=== PATIENT | female | born 1970 | race Caucasian/White ===

== ENCOUNTER → 2020-03-06 15:59 | Outpatient (CLI) | payer OTHER, BC, SELFPAY ==
--- NOTE | ~2020-03-06 | MM_ITS ---
EXAMINATION: MM screening [facility] BI w ganesh HISTORY: Screening TECHNIQUE: Craniocaudal and mediolateral oblique 3-D tomosynthesis images were obtained and synthetic 2-D images were generated. CAD analysis was submitted and interpreted. COMPARISON: 03/02/2019 BREAST PARENCHYMAL COMPOSITION: There are scattered areas of fibroglandular density. FINDINGS: There is no evidence of suspicious mass, calcification, or architectural distortion to sugg est malignancy in either breast. There has been no suspicious interval change. IMPRESSION: 1. No mammographic evidence of malignancy. 2. Recommend routine screening mammography in one year. BI-RADS Category 1: Negative Reviewed, dictated and finalized at location A. LINE REPAIRER
== END ==
PROVIDERS: Visit Provider Nurse Practitioner
DX: Z12.31 Encounter for screening mammogram for malignant neoplasm of breast (principal)
CPT/HCPCS: 77063; 77067

== ENCOUNTER → 2021-03-09 07:49 | Outpatient (CLI) | payer OTHER, SELFPAY ==
--- NOTE | ~2021-03-09 | MM_ITS ---
EXAMINATION: MM screening [facility] BI w ganesh HISTORY: Screening mammogram TECHNIQUE: Craniocaudal and mediolateral oblique 3-D tomosynthesis images were obtained and synthetic 2-D images were generated. CAD analysis was submitted and interpreted. COMPARISON: 03/06/2020, 03/02/2019 BREAST PARENCHYMAL COMPOSITION: There are scattered areas of fibroglandular density. FINDINGS: There is no evidence of suspicious mass, calcification, or architectural distortion to sugg est malignancy in either breast. There has been no suspicious interval change. IMPRESSION: 1. No mammographic evidence of malignancy. 2. Recommend routine screening mammography in one year. BI-RADS Category 1: Negative Reviewed, dictated and finalized at location A. FUNCTIONAL ANALYST
--- NOTE | ~2021-03-09 | DEXA_ITS ---
Bone Density Report Name: AZEB PAEZ Age: 50 Sex: Female Ethnicity: White Date of : 1970 Indication: postmenopausal; screening for osteoporosis; Referring Provider: Marti, Regi Study: Bone densitometry was performed. Exam Date: March 09, 2021 Accession number: [id number] Bone Density: Region BMD T-score Z-score Classification AP Spine (L1-L4) 1.025 -0.2 0.6 Normal Femoral Neck (Left) 0.864 0.1 1.0 Normal Total Hip (Left) 0.913 -0.2 0.3 Normal Femoral Neck (Right) 0.767 -0.7 0.1 Normal Total Hip (Right) 0.885 -0.5 0.1 Normal Total Hip Mean 0.899 -0.4 0.2 Normal World Health Organization criteria for BMD impression classify patients as: Normal (T-score at or above -1.0), Osteopenia (T-score between -1.0 and -2.5), or Osteoporosis (T-score at or below -2.5). 10-year Fracture Risk: FRAX not reported because: All T-scores for Spine Total, Hip Total, Femoral Neck at or above -1.0 Clinical Information Provided by Patient: Has used the following medications: Vitamin D Patient maximum height was 68 Menopause Age: 47 No regular weight bearing exercise Drinks caffeinated beverages Onset of menses at age 10 Number of children 3 Impression: The patient has normal bone mass. Discussion: BONE DENSITY IS ABOVE THE MINIMUM DESIRABLE LEVEL AT ALL SKELETAL SITES TESTED. This patient?s bone mineral density is above the minimum desirable level (T-score -1.0 or better) at all sites measured. The patient should follow a healthful lifestyle (good nutrition with adequate calcium and vitamin D, and appropriate weight-bearing exercise). Follow-Up: Consider repeating this study in 5 years or sooner if there is some new clinical indication. Reported by: [facility] on 03/09/2021 8:21:00 AM. Reviewed, dictated and finalized at location AEmilie [facility]ITAL[facility]
== END ==
PROVIDERS: Visit Provider Nurse Practitioner
DX: Z12.31 Encounter for screening mammogram for malignant neoplasm of breast (principal); Z78.0 Asymptomatic menopausal state
CPT/HCPCS: 77063; 77067; 77080

== ENCOUNTER → 2022-03-16 09:33 | Outpatient (CLI) | payer OTHER, SELFPAY ==
--- NOTE | ~2022-03-16 | MM_ITS ---
EXAMINATION: MM screening [facility] BI w ganesh HISTORY: Screening mammogram TECHNIQUE: Craniocaudal and mediolateral oblique 3-D tomosynthesis images were obtained and synthetic 2-D images were generated. CAD analysis was submitted and interpreted. COMPARISON: 03/09/2021, 02/27/2020, 03/02/2019 bilateral screening mammogram examinations BREAST PARENCHYMAL COMPOSITION: There are scattered areas of fibroglandular density. FINDINGS: Stable benign-appearing intramammary lymph node in the posterior outer mid left breast sinc e 03/02/2019. There is no evidence of suspicious mass, calcification, or architectural distortion to suggest malignancy in either breast. There has been no suspicious interval change. IMPRESSION: 1. No mammographic evidence of malignancy. 2. Recommend routine screening mammography in one year. BI-RADS Category 2: Benign finding(s). Reviewed, dictated and finalized at location A. ATOR TENDER
== END ==
PROVIDERS: PCP Nurse Practitioner; Visit Provider Nurse Practitioner
DX: Z12.31 Encounter for screening mammogram for malignant neoplasm of breast (principal)
CPT/HCPCS: 77063; 77067

== ENCOUNTER 2023-07-23 12:49 | Outpatient (CLI) | payer OTHER, SELFPAY ==
--- NOTE | 2023-07-23 13:30 | NEURO_ITS ---
Impression: # Complains of right wrist pain # Normal Nerve Conduction Study; No Carpal Tunnel Syndrome or ulnar neuropathy. # Normal needle/EMG exam. Nerve Conduction Studies Anti Sensory Summary Table Stim Site NR Peak (ms) P-T Amp (?V) Site1 Site2 Delta-P (ms) Dist (cm) Antione (m/s) Right Median Anti Sensory (2-3nd Digit) Wrist 2.9 74.0 Wrist 2-3nd Digit 2.9 14.0 48 Wrist 3.0 52.7 Wrist 2-3nd Digit 2.9 14.0 48 Right Radial Anti Sensory (Base 1st Digit) Wrist 2.3 22.0 Wrist Base 1st Digit 2.3 0.0 Right Ulnar Anti Sensory (5th Digit) Wrist 2.4 45.4 Wrist 5th Digit 2.4 14.0 58 Motor Summary Table Stim Site NR Onset (ms) O-P Amp (mV) Site1 Site2 Delta-0 (ms) Dist (cm) Antione (m/s) Right Median Motor (Abd Poll Brev) Wrist 3.1 9.0 Elbow Wrist 5.1 29.0 57 Elbow 8.2 6.0 Right Ulnar Motor (Abd Dig Minimi) Wrist 2.5 7.2 A Elbow Wrist 5.0 30.0 60 A Elbow 7.5 5.7 F Wave Studies NR F-Lat (ms) L-R F-Lat (ms) Right Median (Mrkrs) (Abd Poll Brev) 27.86 Right Ulnar (Mrkrs) (Abd Dig Min) 26.79 EMG Side Muscle Nerve Root Ins Act Fibs Amp Dur Recrt Comment Right 1stDorInt Ulnar C8-T1 Nml Nml Nml Nml Nml Right Ext Indicis Radial (Post Int) C7-8 Nml Nml Nml Nml Nml Right Ext Digitorum Radial (Post Int) C7-8 Nml Nml Nml Nml Nml Right BrachioRad Radial C5-6 Nml Nml Nml Nml Nml Right PronatorTeres Median C6-7 Nml Nml Nml Nml Nml Right Abd Poll Brev Median C8-T1 Nml Nml Nml Nml Nml Right ABD Dig Min Ulnar C8-T1 Nml Nml Nml Nml Nml Right Biceps Musculocut C5-6 Nml Nml Nml Nml Nml Right Triceps Radial C6-7-8 Nml Nml Nml Nml Nml Right Deltoid Axillary C5-6 Nml Nml Nml Nml Nml MTDD
== END 2023-07-23 12:50 | disposition home or self-care (01) ==
LOC: ANHNEURO 12:51
PROVIDERS: PCP Nurse Practitioner Family; Visit Provider Nurse Practitioner Family
DX: M25.531 Pain in right wrist (principal); R20.0 Anesthesia of skin; R20.2 Paresthesia of skin
CPT/HCPCS: 95886; 95909

== ENCOUNTER 2023-10-16 12:34 | Outpatient (CLI) | payer OTHER, SELFPAY ==
--- NOTE | ~2023-10-16 | MR_ITS ---
MRI of the right shoulder Technique: Axial proton-density fat-sat images, coronal proton density fat-sat and T2 fat-sat images, and sagittal T1-weighted and T2 fat-sat images were acquired. Clinical History: Pain Findings: There is [id number] AC joint degenerative change. Tiny subchondral spur present. Arin coclavicular, coracoacromial, and coracohumeral ligaments are intact. Supraspinatus and infraspinatus tendons are intact, without partial or full-thickness tear. There is mild tendinosis of these tendons. Subscapularis tendon is intact, mild tendinosis. Tendon of the long head of the biceps is intact. No labral tear evident. Inferior glenohumeral ligament is intact. There is no degenerative change or effusion of the glenohum eral joint. No subacromial/subdeltoid bursitis. No muscle atrophy or edema. There is a 1.8 x 1.7 cm c ircumscribed cystic lesion at the surgical neck region of the humerus, possibly a unicameral bone cys t. Impression: Mild rotator cuff tendinosis. Mild to moderate AC joint degenerative change. 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 Reviewed, dictated and finalized at [facility]. Impression: Mild rotator cuff tendinosis. Mild to moderate AC joint degenerative change. 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
== END 2023-10-16 12:35 | disposition home or self-care (01) ==
LOC: ANHIMG 12:42
PROVIDERS: PCP Nurse Practitioner Family; Visit Provider Nurse Practitioner Family
DX: M19.011 Primary osteoarthritis, right shoulder (principal)
CPT/HCPCS: 73221

== ENCOUNTER 2023-11-05 15:02 | Outpatient (CLI) | payer OTHER, SELFPAY ==
--- NOTE | ~2023-11-05 | MM_ITS ---
EXAMINATION: MM screening [facility] BI w ganesh HISTORY: Screening TECHNIQUE: Craniocaudal and mediolateral oblique 3-D tomosynthesis images were obtained and synthetic 2-D images were generated. CAD analysis was submitted and interpreted. COMPARISON: Comparison to multiple prior studies sequentially, with oldest reviewed study dated 02/08. BREAST PARENCHYMAL COMPOSITION: There are scattered areas of fibroglandular density. FINDINGS: There is no evidence of suspicious mass, calcification, or architectural distortion to sugg est malignancy in either breast. There has been no suspicious interval change. IMPRESSION: 1. No mammographic evidence of malignancy. 2. Recommend routine screening mammography in one year. BI-RADS Category 1: Negative Reviewed, dictated and finalized at location B.
== END 2023-11-05 15:03 ==
LOC: MICIMG 15:03
PROVIDERS: PCP Nurse Practitioner; Visit Provider Nurse Practitioner
DX: Z12.31 Encounter for screening mammogram for malignant neoplasm of breast (principal)
CPT/HCPCS: 77063; 77067

== ENCOUNTER 2024-04-29 15:00 | Outpatient (RCR) | payer OTHER, SELFPAY ==
--- NOTE | 2024-03-22 13:17 | PTOPEVAL1 ---
Assessment and note entered by Ave Dickson, PT Evaluation Information Assessment Status Evaluation Diagnosis M79.672 ICD-10 Condition Codes (PT) Pain in left ankle and joints of left foot M25.572 ,Difficulty Walking R26.2,Abnormalities of gait and mobility R26.9,Weakness R53.1 Onset August 12, 2023 Subjective Information Pt reports that a wooden table fell on her L foot; X-rays negative for fracture, bruising has faded at this time but pain and swelling persist. Has received cortisone shot, but no relief, prescribed Gabapentine and is taking it for 2 weeks now. Pt continue to go to work and perform functional tasks despite the pain and swelling. Reports increased difficulty with standing and walking distances. Assessment PT Clinical Summary Pt presents to therapy with c/o increased L foot pain secondary to a traumatic injury at work which resulted to significant swelling and bruising impacting her ability to perform standing and ambulation without AD at this time. She will benefit from skilled PT for education, to improve ROM, strength, balance and gait, improve functional mobility in order to safely return to [facility]. Plan of Care Interventions Check Out for Orthotic/Prosthetic,Electrical Stimulation,Gait Training,Hot Pack/Cold Pack, Intermittent Compression Pump,Manual Therapy,Neuro Re-education,Patient/Caregiver Education, Therapeutic Activities,Therapeutic Exercise, Ultrasound,Other Other Interventions Taping PT Services Indicated Yes Treatment Frequency and 2x/wk x 18 visits Duration These treatments will address the objective and functional deficits as defined above. The patient will be advanced safely and appropriately in order for the patient to progress towards his/her prior level of function. Additional exercises will be introduced and as well as a comprehensive home exercise program upon discharge, if needed, ?to ensure carryover of functional gains achieved in the clinic. This treatment plan has been reviewed and agreement upon by the patient.
--- NOTE | 2024-03-23 16:00 | OTOPEVAL1 ---
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 On Apr 29, 2023 patient was throwing a trash bag into a dumpster when she felt a pop in her right shoulder . She has been experiencing sharp stabbing pain in the shoulder and the hand. She reports paresthesia in the hand as well in the axillary region. She is right handed. -She has had formal PT on her shoulder around July 2023. She reports no changes with PT. 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 She continues to have severe pain in the shoulder with work tasks. -EMG was normal - no carpal tunnel syndrome and no ulnar neuropathy. -She has received 2 injections to the carpal tunnel (Jan and Feb 2024). -Right shoulder MRI Oct 2023: Mild rotator cuff tendinosis. Mild to moderate AC joint degenerative change. 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 -She is seeing 2 orthopedic surgeons this month: Dr. Nichols on 03/25/24. Dr. Valdez 04/09/24 per workman's comp. Reported Pain Level Pain Score 4,7: Self Report Additional Pain Score Comments Patient reports she feels the best when she first wakes up in the morning. (R) shoulder gets as low as 2/10 and (R) hand gets as low as 3/10. Assessment OT Clinical Summary Patient referred to OT with dx of right UE carpal tunnel and neuropathy. 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 She unfortunately continues to have severe pain and difficulty using her right UE despite the injury occurring 11 months ago. During the assessment today the patient is guarded and holds her arm adducted at her side with the elbow flexed . She is only able to move the shoulder 90 degrees forward and 60 degrees into abduction before needing to stop, describing a severe pulling pain in the medial upper arm/axillary region. She is able to move the elbow, forearm, and wrist through functional limits, but again is guarded. The hand displays difficulties making a fist, measuring 2 cm gap between the fingers and the palm. Did not assess MMT this date due to time constraints. Skilled OT indicated for use of modalities, therapeutic exercise, manual therapy, and HEP instruction and progression to facilitate optimal functional use of her right UE. Plan of Care Interventions Therapeutic Exercise,Manual Therapy,Neuro Re- education,Therapeutic Activities,Hot Pack/Cold Pack,Paraffin OT Services Indicated Yes Treatment Frequency and 2x/week for 8 visits Duration These treatments will address the objective and functional deficits as defined above. The patient will be advanced safely and appropriately in order for the patient to progress towards his/her prior level of function. Additional exercises will be introduced and as well as a comprehensive home exercise program upon discharge, if needed, ?to ensure carryover of functional gains achieved in the clinic. This treatment plan has been reviewed and agreement upon by the patient.
--- NOTE | 2024-03-23 16:00 | OPREHPOC ---
Outpatient Therapy Plan of Care This is a Multidisciplinary Plan of Care that may contain components documented by all disciplines (PT, OT, and ST.) OT Problem 1 OT Problem #1 Knowledge Deficit OT Goal 1 Goal / Goal Update Patient to be independent with instructed materials. Target Visit 8 OT Problem 2 OT Problem #2 Pain OT Goal 1 Goal / Goal Update Patient to report reduced pain in the right shoulder, reporting 4/10 or less at worst . Target Visit 8 OT Goal 2 Goal / Goal Update Patient to report reduced pain in the right hand, reporting 5/10 or less at worst . Target Visit 8 OT Problem 3 OT Problem #3 Edema OT Goal 1 Goal / Goal Update Patient to improve gross right shoulder motion for ADLs as demonstrated by being able to flex and abduct the arm to 120 degrees. Target Visit 8 OT Problem 4 OT Problem #4 Impaired Strength OT Goal 1 Goal / Goal Update Patient to be able to progress to strengthening in the right UE as demonstrated by being able to complete elbow, forearm, and wrist strengthening with 2 lb. free weight. Target Visit 8 OT Goal 2 Goal / Goal Update Patient to be able to progress to strengthening in the right UE as demonstrated by being able to complete right agricultural real estate agent strengthening with yellow putty x10 minutes. Target Visit 8
--- NOTE | 2024-04-29 15:44 | OTOPDC ---
Assessment and note entered by Roman Murphy, OTR/Bubba, CHT OT Discharge Information 04/29/24 Assessment Status Discharge Diagnosis (R) UE carpal tunnel syndrome, (R) UE neuropathy ICD-10 Condition Codes (OT) Pain in right hand M79.641,Paresthesia of skin R20 .2 Subjective Information - Arianna has participated in 8 OT sessions focused on improving right UE use. She continues to be very limited with shoulder ROM >90 degrees. She continues to have radiating pain into the elbow and hand, constant paresthesia. She reports she continues to have daily right UE pain rated at 7/ 10, up to 9/10 the other day when she had to shovel snow. - She reports no change with therapy. 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 On Apr 29, 2023 patient was throwing a trash bag into a dumpster when she felt a pop in her right shoulder . She has been experiencing sharp stabbing pain in the shoulder and the hand. She reports paresthesia in the hand as well in the axillary region. She is right handed. 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 She continues to have severe pain in the shoulder with work tasks. -EMG was normal - no carpal tunnel syndrome and no ulnar neuropathy. -She has received 2 injections to the carpal tunnel (Jan and Feb 2024). -Right shoulder MRI Oct 2023: Mild rotator cuff tendinosis. Mild to moderate AC joint degenerative change. 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 Reported Pain Level Pain Score 6,7: Self Report Assessment OT Clinical Summary Patient referred to OT with dx of right UE carpal tunnel and neuropathy. She presents with right shoulder pain that radiates into the elbow and hand. She unfortunately continues to have severe pain and difficulty using her right UE despite the injury occurring 12 months ago. Reassessment completed today. ROM measurements remained relatively unchanged - shoulder flexion 75-90 degrees, abduction (least tolerance with this motion) 60 degrees, elbow is WFL, wrist is WFL, and fingers are able to make a fist. 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 Unable to progress strengthening in the shoulder or elbow. HEP includes active assisted shoulder motion and active elbow motion. Unfortunately the patient has not progressed with therapy. She continues to experience high levels of pain with UE motion and use. She is independent with instructed materials to maintain her ROM and flexibility. D/C at this time. Plan of Care OT Services Indicated No
== END 2024-04-30 08:12 | disposition home or self-care (01) ==
LOC: ANHHIOT 15:00
PROVIDERS: PCP Nurse Practitioner Family; Visit Provider Plastic Surgery
DX: G56.01 Carpal tunnel syndrome, right upper limb (principal)
CPT/HCPCS: 97016; 97018; 97110; 97140; 97161; 97167; 97530

== ENCOUNTER 2024-05-10 14:45 | Outpatient (RCR) | payer OTHER, SELFPAY ==
--- NOTE | 2024-03-25 17:20 | PTOPEVAL1 ---
Assessment and note entered by Ave Dickson, PT Evaluation Information Assessment Status Evaluation Diagnosis M79.672 ICD-10 Condition Codes (PT) Pain in left ankle and joints of left foot M25.572 ,Difficulty Walking R26.2,Abnormalities of gait and mobility R26.9,Weakness R53.1 Onset 08/12/2023 Subjective Information Pt reports that a heavy wooden table broke and fell on her L foot as she was lifting/moving it at work; X-rays were negative for fracture, bruising has faded at this time but pain and swelling persist. Received a cortisone shot, but no relief; she was prescribed Gabapentine and is still taking it for 2 weeks now. Pt continue to go to work and perform functional tasks despite pain and swelling. Reports increased difficulty with standing and walking any distances, elevation of BLEs at end of day offered minimal relief. Pt wants to return to normal activities without discomfort. Assessment PT Clinical Summary Pt presents to therapy with c/o increased L foot pain secondary to a traumatic injury at work which resulted to significant swelling and bruising that impact her ability to perform standing and ambulation without AD at this time . She will benefit from skilled PT for education, to improve ROM, strength, balance, gait and functional mobility in order to return to [facility]. Plan of Care Interventions Check Out for Orthotic/Prosthetic,Electrical Stimulation,Gait Training,Hot Pack/Cold Pack, Intermittent Compression Pump,Manual Therapy,Neuro Re-education,Patient/Caregiver Education, Therapeutic Activities,Therapeutic Exercise, Ultrasound,Other Other Interventions Taping PT Services Indicated Yes Treatment Frequency and 2x/wk x 20 visits Duration These treatments will address the objective and functional deficits as defined above. The patient will be advanced safely and appropriately in order for the patient to progress towards his/her prior level of function. Additional exercises will be introduced and as well as a comprehensive home exercise program upon discharge, if needed, ?to ensure carryover of functional gains achieved in the clinic. This treatment plan has been reviewed and agreement upon by the patient.
--- NOTE | 2024-05-10 16:52 | PTOPDC ---
Assessment and note entered by Ave Dickson, PT Discharge Information Assessment Status Discharge Diagnosis M79.672 ICD-10 Condition Codes (PT) Pain in left ankle and joints of left foot M25.572 ,Difficulty Walking R26.2,Abnormalities of gait and mobility R26.9,Weakness R53.1 Onset 08/12/2023 Subjective Information Pt reports pain to top of the foot is persisting and is looking forward to getting the nerve conduction test done. States she is feeling a little better but not quite 100% at this time. States she also has a lot going on the past week that may have aggravated everything. She is currently having a migraine. Reported Pain Level Pain Score 3: Self Report Additional Pain Score Comments 2nd - 4th MT when actively abducted increases pain to 4/10 Assessment PT Clinical Summary Pt received a total of 9 treatment sessions and demos good progress with therapy. She showed gains in flexibility, mobility and strength, has increased her LEFs score to 54% indicating a mild to moderate disability compared to moderate/severe disability at [facility]; also showed significant improvement in gait pattern and standing tolerance . However, she reports that pain continue to persist and may have reduced some since evks but is not completely resolved. She is looking at participating in pain management program and has a schedule for Nerve Conduction Test. She is agreeable to DC today and reports compliance with HEPs. Skilled PT discontinued. Plan of Care PT Services Indicated No
== END 2024-05-11 10:54 | disposition home or self-care (01) ==
LOC: ANHHIPT 14:45
PROVIDERS: PCP Nurse Practitioner Family; Visit Provider Nurse Practitioner Family
DX: G90.521 Complex regional pain syndrome I of right lower limb (principal)
CPT/HCPCS: 97014; 97016; 97110; 97112; 97116; 97140; 97161; 97530; 97750; G0283

== ENCOUNTER 2024-06-09 12:46 | Outpatient (CLI) | payer OTHER, SELFPAY ==
--- NOTE | 2024-06-09 14:00 | NEURO_ITS ---
Impression: # History of blunt trauma to the dorsum of left foot. ? # Normal Nerve Conduction Study. ? # Normal needle/EMG exam. ? # Clinical correlation recommended. Nerve Conduction Studies Anti Sensory Summary Table ?Stim Site NR Peak (ms) P-T Amp (?V) Site1 Site2 Delta-P (ms) Dist (cm) Antione (m/s) Left Sup Fibular Anti Sensory (Ant Lat Mall) 14 cm ? 3.3 18.4 14 cm Ant Lat Mall 3.3 16.0 48 Right Sup Fibular Anti Sensory (Ant Lat Mall) 14 cm ? 3.3 3.4 14 cm Ant Lat Mall 3.3 16.0 48 Left Sural Anti Sensory (Lat Mall) Calf ? 3.8 4.6 Calf Lat Mall 3.8 18.0 47 Right Sural Anti Sensory (Lat Mall) Calf ? 3.4 12.3 Calf Lat Mall 3.4 16.0 47 Motor Summary Table ?Stim Site NR Onset (ms) O-P Amp (mV) Site1 Site2 Delta-0 (ms) Dist (cm) Antione (m/s) Left Peroneal Motor (Vastus Med) Ankle ? 3.5 1.0 Popit Ankle 8.3 41.0 49 Popit ? 11.8 0.5 Right Peroneal Motor (Vastus Med) Ankle ? 3.7 1.5 Popit Ankle 8.2 39.0 48 Popit ? 11.9 2.1 Left Tibial Motor (Abd Mcwilliams Brev) Ankle ? 4.2 7.2 Knee Ankle 8.7 41.0 47 Knee ? 12.9 3.3 Right Tibial Motor (Abd Mcwilliams Brev) Ankle ? 4.0 6.5 Knee Ankle 9.0 40.0 44 Knee ? 13.0 3.9 F Wave Studies ?NR F-Lat (ms) L-R F-Lat (ms) Left Peroneal (Mrkrs) (EDB) ? 53.25 0.87 Right Peroneal (Mrkrs) (EDB) ? 54.12 0.87 Left Tibial (Mrkrs) (Abd Hallucis) ? 53.80 1.44 Right Tibial (Mrkrs) (Abd Hallucis) ? 55.24 1.44 EMG ?Side Muscle Nerve Root Ins Act Fibs Amp Dur Recrt Comment Right AntTibialis Dp Br Fibular L4-5 Nml Nml Nml Nml Nml Right Gastroc Tibial S1-2 Nml Nml Nml Nml Nml Right Fibularis Long Sup Br Fibular L5-S1 Nml Nml Nml Nml Nml Right Flex Dig Long Tibial L5-S2 Nml Nml Nml Nml Nml Right Ext Dig Brev Dp Br Fibular L5, S1 Nml Nml Nml Nml Nml Right QuadratusFem QuadFemoris L4-5, S1 Nml Nml Nml Nml Nml Left AntTibialis Dp Br Fibular L4-5 Nml Nml Nml Nml Nml Left Gastroc Tibial S1-2 Nml Nml Nml Nml Nml Left Fibularis Long Sup Br Fibular L5-S1 Nml Nml Nml Nml Nml Left Flex Dig Long Tibial L5-S2 Nml Nml Nml Nml Nml Left Ext Dig Brev Dp Br Fibular L5, S1 Nml Nml Nml Nml Nml Left QuadratusFem QuadFemoris L4-5, S1 Nml Nml Nml Nml Nml MTDD
--- OUTSIDE RECORDS SUMMARY | 2024-06-09 14:00 | XMS_ITS | Clinical Summary ---
Author Organization [facility] Address [facility] [place] [address] Care Team Providers Care Thoracic Medicine Specialist Name Role Phone Aracelis Kent STOCK PLAN ADMINISTRATOR Primary Care Provider [phone] Allergies Active Allergy Reactions Criticality Noted Date Comments Ibuprofen Shortness of Breath High 12/11/2016 Nsaids Shortness of Breath High 12/11/2016 Medications diclofenac XR 100 MG 24 hr tablet Take 100 mg by mouth daily. 1 12/21/2018 Active SYNTHROID 112 MCG tablet Take 112 mcg by mouth daily. 1 12/17/2018 Active atorvastatin 40 MG tablet Take 20 mg by mouth daily. 1 12/17/2018 Active fluticasone propionate 50 MCG/ACT nasal spray 2 sprays by Nasal route 2 (two) times a day. 12/30/2018 Active Ergocalciferol (VITAMIN D2 OR) Take 1.25 mg by mouth weekly. Active Immunizations Name Administration Dates Next Due MODERNA COVID-19 (12+) MRNA, LNP-S, PF, 100 MCG/ 0.5 ML DOSE 05/12/2020,04/14/2020 Family History Medical History Relation Comments Heart Disease Brother Early Father Heart Disease Father Heart Disease Maternal Grandfather Cancer Maternal Grandmother Heart Disease Maternal Grandmother Heart Disease Paternal Grandfather Diabetes Paternal Grandmother Heart Disease Paternal Grandmother Relation Status Comments Brother Father (Age 50) Maternal Grandfather Maternal Grandmother Mother Alive Paternal Grandfather Paternal Grandmother Social History Tobacco Use Types Packs/Day Years Used Date Smoking Tobacco: Never Smokeless Tobacco: Never Alcohol Use Standard Drinks/Week Comments No 0 (1 standard drink = 0.6 oz pur e alcohol) AUDIT-C Answer Date Recorded Frequency of Alcohol Consumption Never 12/30/2018 Average Number of Drinks Not on file 019 Frequency of Binge Drinking Not on file 12/09 Comments No Sex and Gender Information Value Date Recorded Sex Assigned at Not on file Legal Sex Female 8:01 PM CDT Gender Identity Not on file Sexual Orientation Not on file Last Filed Vital Signs Vital Sign Reading Time Taken Comments Blood Pressure 119/60 08/15/2023 6:48 PM CDT Pulse 65 08/15/2023 6:48 PM CDT Temperature 37.2 C (99 F) 08/15/2023 6:48 PM CDT Respiratory Rate 18 08/15/2023 6:48 PM CDT Oxygen Saturation 97% 08/15/2023 6:48 PM CDT Inhaled Oxygen Concentration - - Weight 82.1 kg (181 lb) 08/15/2023 4:41 PM CDT Height 172.7 cm (5' 8 ) 08/15/2023 4:41 PM CDT Body Mass Index 27.52 08/15/2023 4:41 PM CDT Plan of Treatment Health Maintenance Due Date Last Done Comments Cervical Cancer Screening Pa p Smear (Age 30 to 64) Every 3 Years 1969 Colorectal Cancer Screening Colonoscopy (10 Years) 1969 Annual Physical 1972 Hepatitis C 08/31/1987 Hepatitis B Vaccines (1 of 3 - 19+ 3-dose series) 1988 Cervical Cancer Screening Pa p with HPV Testing (Age 30 to 64) Every 5 Years 08/31/1999 Cervical Cancer Screening wi th HPV 08/31/1999 Mammogram Screening 2009 Zoster Vaccines (2 of 2) 11/27/2019 10/02/2019 COVID-19 Vaccine (3 - 2023-2 5 season) 2023 05/12/2020, 04/14/2020 Influenza Adult (#1) 2023 12/19/2018 DTaP, Tdap and Td Vaccines ( 2 - Td or Tdap) 10/01/2029 10/02/2019 Meningococcal B Vaccine Aged Out No l onger eligible based on patient's age to complete this topic Meningococcal Vaccine Aged Out No sheri jatin eligible based on patient's age to complete this topic Pneumococcal Vaccine: Pediatrics (0 to 5 Years) and At-Risk Patients (6 to 64 Years) Aged Out No longer eligible b ased on patient's age to complete this topic RSV Immunizations Under 20 Months Aged Out No longer eligible b ased on patient's age to complete this topic Insurance [facility] Care Teams Thoracic Medicine Specialist Relationship Specialty Start Date End Date Aracelis Kent FNP [address] [place] [id number] PCP - General Nurse Practitioner Family 11/12/23
--- OUTSIDE RECORDS SUMMARY | 2024-06-09 14:00 | XMS_ITS | Clinical Summary ---
Author Organization [facility] Address [address] [place] [address] Care Team Providers Care Security Site Supervisor Name Role Phone Sanaz Pickard MD Unavailable Aracelis Kent NP Primary Care Provider Allergies Active Allergy Reactions Criticality Noted Date Comments Ibuprofen Shortness of breath High 12/11/2016 Nsaids (Non-Steroidal Anti-Inflammatory Drug) Shortness of breath High 12/11/2016 Medications levothyroxine (SYNTHROID) 112 mcg tablet Take 112 mcg by mouth software developer before breakfast Active nabumetone (RELAFEN) 750 mg tablet Take 750 mg by mouth 2 (two) times a day 1 Active atorvastatin (LIPITOR) 40 mg tablet Take 40 mg by mouth daily 1 Active fluticasone propionate (FLONASE) 50 mcg/actuation nasal spray 1 Active ergocalciferol (VITAMIN D) 50,000 unit capsule TAKE 1 CAPSULE BY MOUTH WEEKLY 1 Active gabapentin (NEURONTIN) 300 mg capsule Take one tablet QHS x 5 days then take two tablets QHS 60 capsule 3 1 Active Active Problems Problem Noted Date Diagnosed Date Bone cyst of right humerus 05/03/2024 Peroneal tendinitis of left lower leg 07/27/2020 Chronic right shoulder pain 12/11/2016 Multiple joint pain 10/09/2016 Assessment & Plan (12/11/2016 12:30 PM CDT): Patient disease activity is moderate, multiple tender joints and higher pain score. Patient is to continue gabapentin. Will have her undergo Pt. EMG-NCV normal, possible early evidence of a mild C7 radiculopathy. Unable to take NSAIDs as she is allergic (with SOB). Recommend f/u with ortho. Will see her in three months. May consider repeating u/s at that time if she continues to have hand pain. Assessment & Plan (10/30/2016 12:24 PM CDT): Patient with mild findings on u/s. Suspect most of her shoulder and neck pain is OA and cervical radiculopathy. Will have her get an EMG-NCV study to evaluate where the entrapment is taking place. Will also start her on gabapentin 300 mg q hs for nerve pain at night and to help her sleep. Will probably have to refer her to ortho. Patient seen with Dr. Pickard. Encounters Date Type Department Care Team Description 05/03/2024 12:30 PM FINANCIAL SERVICES SALES REPRESENTATIVE Office Visit [facility] Orthopaedic Surgery [address] [facility] 6th [place] [address] [place] [address] Tan Real MD Bone cyst of right humerus (Primary Dx); Chronic right shoulder pain 05/03/2024 11:52 AM FINANCIAL SERVICES SALES REPRESENTATIVE - 05/03/2024 11:59 PM FINANCIAL SERVICES SALES REPRESENTATIVE Hospital Encounter [facility] [address] [place] [address] Chronic right shoulder pain Discharge Disposition: Discharge to home or self care 04/29/2024 Orders Only [facility] Orthopaedic Surgery [address] [place] [facility] 6th [place] [address] [place] [address] Tan Real MD Chronic right shoulder pain (Primary Dx) from Last 3 Months Immunizations Immunization Administration Dates Next Due Flucelvax Influenza Quad 12/19/2018 Moderna SARS-CoV-2 Monovalent Vaccination (12+ Y RS) 05/12/2020,04/14/2020 Tdap 10/02/2019 ZOSTER Recombinant 10/02/2019 Surgical History Surgery Date Site/Laterality Comments SINUS SURGERY N/A ARM SURGERY N/A SECTION N/A Medical History Medical History Date Comments Allergic rhinitis Obesity Migraines Family History Medical History Relation Name Comments Cancer Brother Heart disease Brother Allergy (severe) Father Heart attack Father Heart disease Father Obesity Father Stroke Father Miscarriages / Stillbirths Mother Mama Alzheimer's disease Paternal Grandfather Pop Heart disease Paternal Grandfather Pop Relation Name Status Comments Brother Father Mother Mama Paternal Grandfather Pop Social History Tobacco Use Types Packs/Day Years Used Date Smoking Tobacco: Never Smokeless Tobacco: Never AUDIT-C Answer Date Recorded Q1: How often do you have a drink containing alc ohol? Monthly or less 08/01/2020 Q2: How many drinks containi ng alcohol do you have on a typical day when you are drinking? 1 or 2 08/01/2020 Q3: How often do you have si x or more drinks on one occasion? Never 08/01/2020 Comments Unknown Sex and Gender Information Value Date Recorded Sex Assigned at Not on file Legal Sex Female 10:01 PM FINANCIAL SERVICES SALES REPRESENTATIVE Gender Identity Not on file Sexual Orientation Not on file Occupation Industry Job Start Date Job End Date EMPLOYED Not on file Not on file Not on file Obstetrics History Last Filed Vital Signs Vital Sign Reading Time Taken Comments Blood Pressure 122/70 12/11/2016 11:30 AM CDT Pulse 78 12/11/2016 11:30 AM CDT Temperature - - Respiratory Rate - - Oxygen Saturation - - Inhaled Oxygen Concentration - - Weight 86.8 kg (191 lb 6.4 oz) 08/01/2020 12:06 PM CDT Height 172.7 cm (5' 8 ) 08/01/2020 12:06 PM CDT Body Mass Index 29.1 08/01/2020 12:06 PM CDT Plan of Treatment Health Maintenance Due Date Last Done Comments Breast Cancer Screening-Mammogram 1969 Cervical Cancer Screening 1969 Colon Cancer Screening-Colonoscopy 1969 Depression Screening 1969 Hepatitis C Screening 1969 Hepatitis B Screening 08/31/1987 Regular Well Visit/Exam 18-64 08/31/1987 Zoster Vaccine (2 of 2) 11/27/2019 10/02/2019 Covid-19 Vaccine (2023-2 5 season) 2023 05/12/2020, 04/14/2020 Influenza Vaccine (Season Ended) 2024 12/19/2018 DTaP/Tdap/Td Vaccine (2 - Td or Tdap) 10/01/2029 10/02/2019 Pneumococcal vaccine <65 Aged Out No longer eligible based on patient's age to complete this topic Procedures Procedure Name Priority Date/Time Associated Diagnosis Comments XR SHOULDER RIGHT 2 OR MORE VIEWS Schedule Routine, Read Routine (OP Routine) 05/03/2024 12:03 PM FINANCIAL SERVICES SALES REPRESENTATIVE Chronic right shoulder pain from Last 3 Months Results * XR Shoulder Right 2 or More Views (05/03/2024 12:03 PM FINANCIAL SERVICES SALES REPRESENTATIVE) Anatomical Region Laterality Modality Upper Extremities, Shoulder Right Comp uted Radiography 05/03/2024 12:4 6 PM FINANCIAL SERVICES SALES REPRESENTATIVE Impressions 05/03/2024 12:46 PM FINANCIAL SERVICES SALES REPRESENTATIVE Grossly unchanged cystic lesion in the right proximal humerus. Electronically signed by: Fabricio Newberry D.O. Narrative 05/03/2024 12:46 PM FINANCIAL SERVICES SALES REPRESENTATIVE EXAMINATION: XR SHOULDER RIGHT 2 OR MORE VIEWS HISTORY: Right Shoulder cyst COMPARISON: MRI 10/22/2016, radiographs 07/19/2020 FINDINGS: Normal glenohumeral joint space and alignment. Normal subacromial space. Mild acromioclavicular osteoarthritis. Grossly unchanged cystic lesion in the humeral head near the surgical neck. No significant endosteal scalloping or aggressive periosteal reaction. No displaced fracture. Procedure Note Fabricio Newberry, - 05/03/2024 EXAMINATION: XR SHOULDER RIGHT 2 OR MORE VIEWS HISTORY: Right Shoulder cyst COMPARISON: MRI 10/22/2016, radiographs 07/19/2020 FINDINGS: Normal glenohumeral joint space and alignment. Normal subacromial space. Mild acromioclavicular osteoarthritis. Grossly unchanged cystic lesion in the humeral head near the surgical neck. No significant endosteal scalloping or aggressive periosteal reaction. No displaced fracture. IMPRESSION: Grossly unchanged cystic lesion in the right proximal humerus. Electronically signed by: Fabricio Newberry D.O. Tan Real MD IMG XR PROCEDURES Final Re sult from Last 3 Months Insurance CHOICE PLUS CHOICE PLUS [facility] CHOICE PLUS BLUE ACC[place] [facility] CHOICE PLUS CHOICE PLUS WORKERS COMPENSATION GENERIC COMPENSATION Care Teams Security Site Supervisor Relationship Specialty Start Date End Date Aracelis Kent NP [address] [place] [address] PCP - General Nurse Practitioner 05/03/24 [place] [id number] [address] Rheumatology 12/12/16
--- OUTSIDE RECORDS SUMMARY | 2024-06-09 14:00 | XMS_ITS | Encounter Summary ---
Author Organization [facility] Address [facility] [place] [address] Care Team Providers Care Mobile Ui Designer Name Role Phone Macario Ibrahim MD Primary Care Provider Unava Robyn Strange DO Primary Care Provider [phone] Aracelis Kent Primary Care Provider [phone] Encounter Details Date Type Department Care Team (Late st Contact Info) Description 11/22/2016 Abstract [facility] CONVERSION [address] [place] [address] , Michaelle Zamudio MD Social History Tobacco Use Types Packs/Day Years Used Date Smoking Tobacco: Never Assessed Comments Unknown Sex and Gender Information Value Date Recorded Sex Assigned at Not on file Legal Sex Female 8:01 PM CDT Gender Identity Not on file Sexual Orientation Not on file documented as of this encounter Plan of Treatment Not on file documented as of this encounter Visit Diagnoses Not on filedocumented in this encounter Care Teams Mobile Ui Designer Relationship Specialty Start Date End Date Macario Ibrahim MD PCP - General INTERNAL MEDICINE 12/02/18 11/02/20 Robyn Rucker DO PCP - General FAMILY PRACTICE 11/03/20 11/11/23 Aracelis Kent FNP [address] [place] [address] PCP - General Nurse Practitioner Family 11/12/23 documented as of this encounter
--- OUTSIDE RECORDS SUMMARY | 2024-06-09 14:00 | XMS_ITS | Clinical Summary ---
Author Organization [facility] Address [address] [place] [address] Care Team Providers Care Business Administrator Name Role Phone Macario Ibrahim MD Primary Care Provider [phone] Source Comments [facility],non-owned Affiliates and Associated Physician Practices is amultiple site organization consisting of ambulatory clinics and hospital sitesin [place], [place], [place] and [place]. This disclosure is being madepursuant to the Care Everywhere program and may not contain all information available regarding this patient. Last updated 17.[facility] [employer] Social History Tobacco Use Types Packs/Day Years Used Date Smoking Tobacco: Never Assessed Sex and Gender Information Value Date Recorded Sex Assigned at Not on file Gender Identity Not on file Sexual Orientation Not on file Plan of Treatment Health Maintenance Due Date Last Done Comments COLOGUARD (AGES 45-75) - COL ON CA SCREENING 1969 COLON MONITORING 1969 COLONOSCOPY - COLON CA SCREENING 1969 CT COLONOGRAPHY - COLON CA SCREENING 1969 Colorectal Cancer Screening 1969 FIT - COLON CA SCREENING 1969 FLEX SIG - COLON CA SCREENING 1969 LIPID TESTING 1969 MAMMOGRAM 1969 PAP SMEAR 1969 HIV SCREENING 1984 HEPATITIS C SCREENING 08/26/1987 DTAP/TDAP/TD VACCINES (1 - Tdap) 1988 HEPATITIS B VACCINE (1 of 3 - 19+ 3-dose series) 1988 PNEUMOCOCCAL VACCINE 50+ (1 of 1 - PCV) 08/31/2019 ZOSTER VACCINE (1 of 2) 08/31/2019 COVID-19 VACCINE ( - 2023-2 5 season) 2023 INFLUENZA VACCINE (#1) 2023 DEPRESSION SCREENING 03/10/2024 HIB VACCINE Aged Out No longer eligi ble based on patient's age to complete this topic HPV VACCINE Aged Out No longer eligi ble based on patient's age to complete this topic MENINGOCOCCAL (Group B) VACC INE SHARED DECISION-MAKING Aged Out No longer eligibl e based on patient's age to complete this topic MENINGOCOCCAL GROUPS A/C/Y/W VACCINE Aged Out No longer eligible b ased on patient's age to complete this topic PNEUMOCOCCAL VACCINE Aged Out No long er eligible based on patient's age to complete this topic Care Teams Business Administrator Relationship Specialty Start Date End Date Macario Ibrahim MD [address] [address] PCP - General Internal Medicine 10/09/16
--- OUTSIDE RECORDS SUMMARY | 2024-06-09 14:00 | XMS_ITS | Referral Summary ---
Author Organization [facility] Address [address] [facility] [place] [address] Care Team Providers Care Insulation Worker Name Role Phone Sanaz Pickard MD Unavailable Aracelis Kent NP Primary Care Provider [phone] Encounters Date Type Department Care Team Description 05/03/2024 11:52 AM MICRO PALEONTOLOGIST - 05/03/2024 11:59 PM MICRO PALEONTOLOGIST Hospital Encounter [facility] ([facility] [address] [place] [address] Chronic right shoulder pain Discharge Disposition: Discharge to home or self care 05/03/2024 12:30 PM MICRO PALEONTOLOGIST Office Visit [facility] Orthopaedic Surgery [address] [place] [address] Advanced Medicine [address]th [place] [address] [place] [address] Tan Real MD Bone cyst of right humerus (Primary Dx); Chronic right shoulder pain 04/29/2024 Orders Only [facility] Orthopaedic Surgery [address] [place] [address] Advanced Medicine [address]th [place] [address] [place] [address] Tan Real MD Chronic right shoulder pain (Primary Dx) from Last 3 Months Allergies Active Allergy Reactions Criticality Noted Date Comments Ibuprofen Shortness of breath High 12/11/2016 Nsaids (Non-Steroidal Anti-Inflammatory Drug) Shortness of breath High 12/11/2016 Medications levothyroxine (SYNTHROID) 112 mcg tablet Take 112 mcg by mouth oncology coordinator before breakfast Active nabumetone (RELAFEN) 750 mg [...] to ortho. Patient seen with Dr. Pickard. Immunizations Immunization Administration Dates Next Due Flucelvax Influenza Quad 12/19/2018 Moderna SARS-CoV-2 Monovalent Vaccination (12+ Y RS) 05/12/2020,04/14/2020 Tdap 10/02/2019 ZOSTER Recombinant 10/02/2019 Social History Tobacco Use Types Packs/Day Years [...] on file Legal Sex Female 10:01 PM MICRO PALEONTOLOGIST Gender Identity Not on file Sexual Orientation Not on file Occupation Industry Job Start Date Job End Date EMPLOYED Not on file Not on file Not on file Last Filed Vital Signs [...] 08/01/2020 12:06 PM CDT Plan of Treatment Not on file Procedures Procedure Name Priority Date/Time Associated Diagnosis Comments XR SHOULDER RIGHT 2 OR MORE VIEWS Schedule Routine, Read Routine (OP Routine) 05/03/2024 12:03 PM MICRO PALEONTOLOGIST Chronic right shoulder pain from Last 3 Months Results * XR Shoulder Right 2 or More Views (05/03/2024 12:03 PM MICRO PALEONTOLOGIST) Anatomical Region Laterality Modality Upper Extremities, Shoulder Right Comp uted Radiography 05/03/2024 12:4 6 PM MICRO PALEONTOLOGIST Impressions 05/03/2024 12:46 PM MICRO PALEONTOLOGIST Grossly unchanged cystic lesion in the right proximal humerus. Electronically signed by: Fabricio Newberry D.O. Narrative 05/03/2024 12:46 PM MICRO PALEONTOLOGIST EXAMINATION: XR SHOULDER RIGHT 2 OR MORE [...] from Last 3 Months Insurance CHOICE PLUS [facility] HMO/PPO Address: [facility] [address] [facility] HMO/PPO Address: [address] [address] [place] [address] [facility] [facility] HMO/PPO Address: [address] [address] [place] [address] BLUE ACC[place] CHOICE PLUS [facility] HMO/PPO Address: [address] [address] [place] [address] [facility] HMO/PPO Address: [address] [address] [place] [address] WORKERS COMPENSATION GENERIC COMPENSATION Care Teams Insulation Worker Relationship Specialty Start Date End Date Aracelis Kent NP [address] [place] [address] PCP - General Nurse Practitioner 05/03/24 [place] [address] [facility] [address] [place] [address] Rheumatology 12/12/16
--- OUTSIDE RECORDS SUMMARY | 2024-06-09 14:00 | XMS_ITS | Encounter Summary ---
Author Organization [facility] Address [address] [place] [address] Care Team Providers Care Shipping Receiving Clerk Name Role Phone Patrice Collado MD, Macario Jennings Unavailable [phone] Patrice Collado MD, Oscar A. Unavailable + [phone] Sanaz Pickard MD Unavailable Patrice Collado MD, Oscar A. Primary Care Provider Miscellaneous, Not In File Primary Care Provider Unavailable Unknown, Notinfile Primary Care Provider Unavail able Aracelis Kent NP Primary Care Provider [phone] Encounter Details Date Type Department Care Team (Late st Contact Info) Description 08/09/[address] [facility] [address] [place] [address] Transcribed Order, Provider Social History Tobacco Use Types Packs/Day Years [...] on file Legal Sex Female 10:01 PM MANAGER CARGO Gender Identity Not on file Sexual Orientation Not on file Occupation Industry Job Start Date Job End Date EMPLOYED Not on file Not on file Not on file documented as of this encounter Plan of Treatment Not on file documented as of this encounter Visit Diagnoses Not on filedocumented in this encounter Care Teams Shipping Receiving Clerk Relationship Specialty Start Date End Date Macario Ibrahim Jr., MD [address] [place] [address] PCP - General 11/04/19 10/12/20 Miscellaneous, Not In File PCP - General 10/16/20 Unknown, Notinfile PCP - General 04/09/24 05/02/24 Aracelis Kent NP [address] [place] [address] PCP - General Nurse Practitioner 05/03/24 Macario Ibrahim Jr., MD [address] [place] [address] 09/18/16 10/12/20 Macario Ibrahim Jr., MD [address] [place] [address] Geriatric Medicine 10/09/16 10/12/20 [place] [address] [facility] [address] [place] [address] Rheumatology 12/12/16 documented as of this encounter
== END 2024-06-09 12:47 | disposition home or self-care (01) ==
LOC: ANHNEURO 12:50
PROVIDERS: Visit Provider Podiatrist
DX: G90.521 Complex regional pain syndrome I of right lower limb (principal); Z87.828 Personal history of other (healed) physical injury and trauma
CPT/HCPCS: 95886; 95910

== ENCOUNTER 2024-06-28 10:24 | Outpatient (CLI) | payer OTHER, SELFPAY ==
--- NOTE | ~2024-06-28 | XR_ITS ---
Right Hand Technique: PA, oblique, and lateral views were obtained. Clinical History: Carpal tunnel syndrome Findings: No acute fracture or dislocation is seen. Osseous alignment is anatomic. Joint spaces are p reserved. Soft tissues are unremarkable. Impression: Unremarkable right hand. Reviewed, dictated and finalized at location . Impression: Unremarkable right hand.
--- OUTSIDE RECORDS SUMMARY | 2024-06-28 12:43 | XMS_ITS | Referral Summary ---
Author Organization [facility] Address [address] [facility] [address] Care Team Providers Care Dental Director Name Role Phone Sanaz Pickard MD Unavailable Aracelis Kent NP Primary Care Provider [phone] Encounters Date Type Department Care Team Description 05/03/2024 11:52 AM SLUBBER TENDER - 05/03/2024 11:59 PM SLUBBER TENDER Hospital Encounter [facility] [address] [place] [address] Chronic right shoulder pain Discharge Disposition: Discharge to home or self care 05/03/2024 12:30 PM SLUBBER TENDER Office Visit [facility] Orth[facility] [address] [place] [address] Advanced Medicine 6th [place] [address] [place] [id number] Tan Real MD Bone cyst of right humerus (Primary Dx); Chronic right shoulder pain 04/29/2024 Orders Only [facility] [address] [place] [address] Advanced Medicine 6th [place] [address] [place] [address] Tan Real MD Chronic right shoulder pain (Primary Dx) from Last 3 Months Allergies Active Allergy Reactions Criticality Noted Date Comments Ibuprofen Shortness of breath High 12/11/2016 Nsaids (Non-Steroidal Anti-Inflammatory Drug) Shortness of breath High 12/11/2016 Medications levothyroxine (SYNTHROID) 112 mcg tablet Take 112 mcg by mouth installation technician before breakfast Active nabumetone (RELAFEN) 750 mg [...] on file Legal Sex Female 10:01 PM SLUBBER TENDER Gender Identity Not on file Sexual Orientation [...] Read Routine (OP Routine) 05/03/2024 12:03 PM SLUBBER TENDER Chronic right shoulder pain from Last 3 Months Results * XR Shoulder Right 2 or More Views (05/03/2024 12:03 PM SLUBBER TENDER) Anatomical Region Laterality Modality Upper Extremities, Shoulder Right Comp uted Radiography 05/03/2024 12:4 6 PM SLUBBER TENDER Impressions 05/03/2024 12:46 PM SLUBBER TENDER Grossly unchanged cystic lesion in the right proximal humerus. Electronically signed by: Fabricio Newberry D.O. Narrative 05/03/2024 12:46 PM SLUBBER TENDER EXAMINATION: XR SHOULDER RIGHT 2 OR MORE [...] 3 Months Insurance [facility] HMO/PPO Address: [facility] [address] [facility] [facility] HMO/PPO Address: [address] [address] [place] [address] [facility] HMO/PPO Address: [address] [address] [place] [address] [place]UE [place] CHOICE [facility] HMO/PPO Address: [address] [address] [place] [address] [facility] HMO/PPO Address: [address] [address] [place] [address] WORKERS COMPENSATION GENERIC COMPENSATION Care Teams Dental Director Relationship Specialty Start Date End Date Aracelis Kent NP [address] [place] [address] PCP - General Nurse Practitioner 05/03/24 [place] [address] [facility] [address] [place] [address] Rheumatology 12/12/16
--- OUTSIDE RECORDS SUMMARY | 2024-06-28 12:43 | XMS_ITS | Clinical Summary ---
Author Organization [facility] Address [address] [place] [address] Care Team Providers Care Figure Clerk Name Role Phone Macario Ibrahim MD Primary Care Provider [phone] Source Comments [facility],non-owned Affiliates and Associated Physician Practices is amultiple site organization consisting of ambulatory clinics and hospital sitesin [place], [place], [place] and [place]. This disclosure is being madepursuant to the Care Everywhere program and may not contain all information available regarding this patient. Last updated 17.[facility] [employer] Social History Tobacco Use Types Packs/Day Years Used Date Smoking Tobacco: Never Assessed Comments Unknown Sex and Gender Information Value Date Recorded Sex Assigned at Not on file Legal Sex Female 10:24 AM CDT Gender Identity Not on file Sexual [...] SCREENING 1969 LIPID TESTING 1969 MAMMOGRAM 1969 HIV SCREENING 1984 HEPATITIS C SCREENING 08/26/1987 DTAP/TDAP/TD VACCINES (1 - Tdap) 1988 HEPATITIS B VACCINE (1 of 3 - 19+ 3-dose series) 1988 PNEUMOCOCCAL VACCINE 50+ (1 of 1 - PCV) 08/31/2019 ZOSTER VACCINE (1 of 2) 08/31/2019 COVID-19 VACCINE (1 - 2023-2 5 season) 2023 DEPRESSION SCREENING 03/10/2024 INFLUENZA VACCINE (Season Ended) 2024 HIB VACCINE Aged Out No longer eligi [...] patient's age to complete this topic Insurance [facility] Address: [address] [address] [place] [address] Care Teams Figure Clerk Relationship Specialty Start Date End Date Macario Ibrahim MD [address] [address] PCP - General Internal Medicine 10/09/16
--- OUTSIDE RECORDS SUMMARY | 2024-06-28 12:43 | XMS_ITS | Clinical Summary ---
Author Organization [facility] Address [address] [place] [address] Care Team Providers Care Pot Puller Name Role Phone Sanaz Pickard MD Unavailable Aracelis Kent NP Primary Care Provider Allergies Active Allergy Reactions Criticality Noted Date Comments Ibuprofen Shortness of breath High 12/11/2016 Nsaids (Non-Steroidal Anti-Inflammatory Drug) Shortness of breath High 12/11/2016 Medications levothyroxine (SYNTHROID) 112 mcg tablet Take 112 mcg by mouth hand candle dipper before breakfast Active nabumetone (RELAFEN) 750 mg [...] Department Care Team Description 05/03/2024 12:30 PM FOUNDRY WORKER GENERAL Office Visit [facility] [address] [facility] 6th [place] [address] [place] [address] Tan Real MD Bone cyst of right humerus (Primary Dx); Chronic right shoulder pain 05/03/2024 11:52 AM FOUNDRY WORKER GENERAL - 05/03/2024 11:59 PM FOUNDRY WORKER GENERAL Hospital Encounter [facility] [address] [place] [address] Chronic right shoulder pain Discharge Disposition: Discharge to home or self care 04/29/2024 Orders Only [facility] [address] [facility] Advanced Medicine 6th [place] [address] [place] [address] Tan Real MD Chronic right shoulder pain [...] on file Legal Sex Female 10:01 PM FOUNDRY WORKER GENERAL Gender Identity Not on file Sexual Orientation [...] Read Routine (OP Routine) 05/03/2024 12:03 PM FOUNDRY WORKER GENERAL Chronic right shoulder pain from Last 3 Months Results * XR Shoulder Right 2 or More Views (05/03/2024 12:03 PM FOUNDRY WORKER GENERAL) Anatomical Region Laterality Modality Upper Extremities, Shoulder Right Comp uted Radiography 05/03/2024 12:4 6 PM FOUNDRY WORKER GENERAL Impressions 05/03/2024 12:46 PM FOUNDRY WORKER GENERAL Grossly unchanged cystic lesion in the right proximal humerus. Electronically signed by: Fabricio Newberry D.O. Narrative 05/03/2024 12:46 PM FOUNDRY WORKER GENERAL EXAMINATION: XR SHOULDER RIGHT 2 OR MORE [...] 3 Months Insurance CHOICE PLUS CHOICE PLUS [facility] CHOICE PLUS [place] [facility] CHOICE PLUS CHOICE PLUS WORKERS COMPENSATION GENERIC COMPENSATION Care Teams Pot Puller Relationship Specialty Start Date End Date Aracelis Kent NP [address] [place] [address] PCP - General Nurse Practitioner 05/03/24 [place] [address] [address] Rheumatology 12/12/16
--- OUTSIDE RECORDS SUMMARY | 2024-06-28 12:44 | XMS_ITS | Clinical Summary ---
Author Organization [facility] Address [facility] [place] [address] Care Team Providers Care Cloth Laminating Supervisor Name Role Phone Aracelis Kent TACK MAKER Primary Care Provider [phone] Allergies Active Allergy Reactions Criticality Noted Date [...] 1.25 mg by mouth weekly. Active Immunizations Immunization Administration Dates Next Due MODERNA COVID-19 (12+) [...] wi th HPV 08/31/1999 Mammogram Screening 2009 Pneumococcal Vaccine: 50+ Years (1 of 1 - PCV) 08/31/2019 Zoster Vaccines (2 of 2) 11/27/2019 10/02/2019 COVID-19 Vaccine (3 - 2023-2 5 season) 2023 05/12/2020, 04/14/2020 DTaP, Tdap and Td Vaccines ( 2 [...] patient's age to complete this topic Insurance [facility] Care Teams Cloth Laminating Supervisor Relationship Specialty Start Date End Date Aracelis Kent FNP [address] [place] [address] PCP - General Nurse Practitioner Family 11/12/23
--- OUTSIDE RECORDS SUMMARY | 2024-06-28 12:44 | XMS_ITS | Encounter Summary ---
Author Organization [facility] Address [address] [place] [address] Care Team Providers Care Torpedo Shooter Name Role Phone Patrice Collado MD, Macario Jennings Unavailable [phone] Patrice Collado MD, Oscar A. Unavailable [phone] Sanaz Pickard MD Unavailable Patrice Collado MD, Oscar A. Primary Care Provider Miscellaneous, Not In File Primary Care Provider Unavailable Unknown, Notinfile Primary Care Provider Unavail able Aracelis Kent NP Primary Care Provider [phone] Encounter Details Date Type Department Care Team (Late st Contact Info) Description 08/09/2020 Telephone [facility] [address] [place] [address] Transcribed Order, Provider Social History [...] on file Legal Sex Female 10:01 PM GREASE REMOVER Gender Identity Not on file Sexual Orientation Not on file Occupation Industry Job Start Date Job End Date EMPLOYED Not on file Not on file Not on file documented as of this encounter Plan of Treatment Not on file documented as of this encounter Visit Diagnoses Not on filedocumented in this encounter Care Teams Torpedo Shooter Relationship Specialty Start Date End Date Macario Ibrahim Jr., MD [address] [place] [address] PCP - General 11/04/19 10/12/20 Miscellaneous, Not In File PCP - General 10/16/20 Unknown, Notinfile PCP - General 04/09/24 05/02/24 Aracelis Kent NP [address] [place] [address] PCP - General Nurse Practitioner 05/03/24 Macario Ibrahim Jr., MD [address] [place] [address] 09/18/16 10/12/20 Macario Ibrahim Jr., MD [address] [place] [address] Geriatric Medicine 10/09/16 10/12/20 [place] [address] [facility] [address] [place] [address] Rheumatology 12/12/16 documented as of this encounter
--- OUTSIDE RECORDS SUMMARY | 2024-06-28 12:44 | XMS_ITS | Encounter Summary ---
Author Organization [facility] Address [facility] [place] [address] Care Team Providers Care Clinical Systems Analyst Name Role Phone Macario Ibrahim MD Primary Care Provider Unava Robyn Strange DO Primary Care Provider [phone] Aracelis Kent Primary Care Provider [phone] Encounter Details Date Type Department Care Team (Late st Contact Info) Description 11/22/2016 Abstract [facility] CONVERSION [address] [place] [address] , Michaelle Zamudio MD Social History Tobacco [...] on filedocumented in this encounter Care Teams Clinical Systems Analyst Relationship Specialty Start Date End Date Macario Ibrahim MD PCP - General INTERNAL MEDICINE 12/02/18 11/02/20 Robyn Rucker DO PCP - General FAMILY PRACTICE 11/03/20 11/11/23 Aracelis Kent FNP [address] [place] [address] PCP - General Nurse Practitioner Family 11/12/23 documented as of this encounter
== END 2024-06-28 10:25 | disposition home or self-care (01) ==
PROVIDERS: PCP Nurse Practitioner Family; Visit Provider Plastic Surgery
DX: G56.01 Carpal tunnel syndrome, right upper limb (principal)
CPT/HCPCS: 73130

== ENCOUNTER 2024-08-26 07:49 | Day surgery (SDC) | payer OTHER, SELFPAY ==
--- NOTE | 2024-08-26 06:47 | P.HP_ITS ---
History of Present Illness History of Present Illness Chief complaint: Right Carpal and Cubital Tunnel Syndrome Narrative: Patient seen and examined in pre-operative holding area. No interval change in medical history or symptoms. Patient recalls previous discussion of benefits and alternatives to procedure. Continues to desire to proceed with right endoscopic possible open carpal tunnel release and right cubital tunnel release. Reviewed procedure, post-op expectations and risks including but not limited to bleeding, infection, injury to tendon/nerve/vessel, decreased hand function, stiffness, RSD, no change or worsening of symptoms. I discussed the possible use of assistants and their participation in the case. Patient stated understanding and signed the consent form wishing to proceed. Review of Systems Review of Systems: All systems reviewed & are unremarkable except as noted in HPI and below PMFSH Past Medical History Medical History Annual physical exam Thyroid disorder Headache, migraine Allergies Chronic maxillary sinusitis Migraine Hypothyroidism, unspecified Mixed hyperlipidemia Obstructive sleep apnea Other fatigue Peripheral polyneuropathy Vertigo Surgical History Surgical History History of placement of ear tubes History of surgery on arm 82-83 delivery delivered 1994 H/O sinus surgery 2018 Family History Family History Grandparent Family history of malignant neoplasm of breast Heart disease Cerebrovascular accident Sibling Family history of sarcoidosis Father Heart disease Mother Alzheimer's dementia Vannesa's disease Grandparent Vannesa's disease Other Diabetes mellitus Family history of coronary artery disease Social History Social History Social History: 07/02/24 patient declined [facility] Smoking status: Never smoker Second hand tobacco smoke exposure: Yes Alcohol intake: current Drinks per week: 1 Alcohol use details: wine Substance use: never Substance use type: does not use Do You Feel Safe in your Home?: Yes Lack of Transportation: No Lack of Food: Never True Current Housing: I Have Housing Concerned About Future Housing: No Difficulty Paying Gas/Electric Bills: No Difficulty Paying for Meds: No Currently Unemployed: No Education: High School Diploma/GED Difficulty w/ Childcare or Family Care: No Living arrangements: alone Occupation/Education: occupation 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 Gender identity (if verbalized by the patient): Female Spiritual care concerns: No Agree to blood products: Yes Meds Home Medications and Allergies Home Medications ?Medication ?Instructions ?Recorded ?Confirmed ?Type levothyroxine 112 mcg tablet See Rx Instructions .Route 12/04/23 08/26/24 Rx .COMPLEX #45 tabs atorvastatin 10 mg tablet (Lipitor) 10 mg PO QHS #90 tabs 04/15/24 08/26/24 Rx amitriptyline 50 mg tablet 50 mg PO QHS 06/28/24 08/26/24 History ergocalciferol (vitamin D2) 1,250 See Rx Instructions .Route 07/22/24 08/26/24 Rx mcg (50,000 unit) capsule .COMPLEX #12 caps meloxicam 7.5 mg tablet 7.5 mg PO DAILY #7 tabs 08/26/24 Rx Allergies Allergy/AdvReac Type Severity Reaction Status Date / Time adhesive tape Allergy Unknown Rash Verified 08/26/24 08:13 ibuprofen Allergy Unknown Difficulty Verified 08/26/24 08:13 Breathing pseudoephedrine Allergy Unknown Anaphylactic Verified 08/26/24 08:13 Shock tramadol Allergy Unknown Difficulty Verified 08/26/24 08:13 Breathing triprolidine Allergy Unknown Difficulty Verified 08/26/24 08:13 Breathing Exam Narrative: unchanged Assessment and Plan Assessment and plan (1) Carpal tunnel syndrome of right wrist: Code(s): G56.01 - Carpal tunnel syndrome, right upper limb Status: Acute Assessment and Plan: cont as above (2) Ulnar neuropathy at elbow of right upper extremity: Code(s): G56.21 - Lesion of ulnar nerve, right upper limb Status: Acute
--- NOTE | 2024-08-26 06:47 | P.OP_ITS ---
Procedure Note - Detailed Date of Procedure 08/26/24 Pre-op Diagnosis Right Carpal and Cubital Tunnel Syndrome Post-op Diagnosis Same Procedure Performed right ectr and CuTR Surgeon Jenifer Arriaga MD Rn Corrections Michelle Rothman pa-c Anesthesia [facility] Description of Procedure INFORMED CONSENT: The patient was seen and examined and marked in the pre-op area.? The patient signed the consent form. PROCEDURE IN DETAIL:The patient taken back to OR on the stretcher in supine position. Time out performed with anesthesia, surgeon and staff agreeing on patient's name site and surgery to be performed SCDs were placed on the lower extremities and inflated. A tourniquet was placed on {right} upper extremity and antibiotics given IV After anesthesia administered sedation I injected {10}cc 1%lido with epi and 0.5% marcaine plain at the operative sites The?{right upper extremity}?was prepped and draped in sterile fashion the??{right upper extremity} was? exsanguinated with Esmarch bandage and tourniquet inflated to 250mmHg I made a transverse incision in the {right} volar distal wrist crease through skin and dermis with 15 blade scalpel.? Littler scissors spread down to antebrachial fascia. A small incision was made in antebrachial fascia allowing access to Carpal tunnel. I proceeded with sequential dilation staying in line with the ring finger and hugging the hook of the hamate.? I then used the synovial elevator to free any adhesions from the underside of the transverse carpal ligament. Next I was able to insert the Microaire endoscopic carpal tunnel device with direct visualization of the transverse fibers on the monitor and proceeded with complete segmental retrograde release of the ligament in its entirety.? I irrigated with normal saline and closed with 4-0 monocryl for dermis and subcuticular closure. I next proceeded with making a longitudinal incision between two heads for flexor carpi ulnaris at end of {right} cubital tunnel with 15 blade scalpel.? Littler scissors were used to spread down to FCU fascia.? An incision was made in FCU fascia and ulnar nerve identified exiting cubital tunnel.? I proceeded with complete retrograde release of the cubital tunnel including 7cm proximal for the intermuscular septum.? The nerve appeared healthy with visible vaso nervorum.? There was no subluxation on full elbow range of motion. ? I irrigated with normal saline and closure with 4-0 monocryl for dermis and subcuticular. The incisions were covered with Dermabond then 4x4s, raji, and a posterior elbow and volar wrist splint for patient safety, security and comfort and secured with silvio bandages after the tourniquet was let down noting the hand was warm and well perfused.? Patient awaken from anesthesia and transferred to recovery in stable condition Complications - none EBL- 1cc Disposition - home in stable condition Michelle Rothman PA-C was essential for positioning, retraction, closure and dressing placement [facility] Billing Surgery - Charge Forward: Surgery Billing ([id number] same for michelle adding )
--- OUTSIDE RECORDS SUMMARY | 2024-08-26 08:05 | XMS_ITS | Referral Summary ---
Author Organization [facility] Address [address] [place] [address] Care Team Providers Care Brine Supervisor Name Role Phone Sanaz Pickard MD Unavailable Aracelis Kent NP Primary Care Provider Allergies Active Allergy Reactions Criticality Noted Date Comments Ibuprofen Shortness of breath High 12/11/2016 Nsaids (Non-Steroidal Anti-Inflammatory Drug) Shortness of breath High 12/11/2016 Medications levothyroxine (SYNTHROID) 112 mcg tablet Take 112 mcg by mouth director cardiology before breakfast Active nabumetone (RELAFEN) 750 mg [...] on file Legal Sex Female 10:01 PM HYDRODYNAMICIST Gender Identity Not on file Sexual Orientation [...] 12:06 PM CDT Height 172.7 cm (5' 8) 08/01/2020 12:06 PM CDT Body Mass Index 29.1 08/01/2020 12:06 PM CDT Plan of Treatment Not on file Insurance CHOICE PLUS [address] CHOICE PLUS [facility] CHOICE PLUS BLUE ACCESS OOS BLUE ACCESS [place] CHOICE PLUS CHOICE PLUS WORKERS COMPENSATION GENERIC COMPENSATION Care Teams Brine Supervisor Relationship Specialty Start Date End Date Aracelis Kent NP [address] [place] [address] PCP - General Nurse Practitioner 05/03/24 [place] [address] [address] Rheumatology 12/12/16
--- OUTSIDE RECORDS SUMMARY | 2024-08-26 08:05 | XMS_ITS | Clinical Summary ---
Author Organization [facility] Address [address] [place] [address] Care Team Providers Care Metal Weigher Name Role Phone Macario Ibrahim MD Primary Care Provider [phone] Source Comments [facility],non-owned Affiliates and Associated Physician Practices is amultiple site organization consisting of ambulatory clinics and hospital sitesin [place], [place], [place] and [place]. This disclosure is being madepursuant to the Care Everywhere program and may not contain all information available regarding this patient. Last updated 17.[facility] [employer] Social History Tobacco Use Types Packs/Day Years [...] patient's age to complete this topic Insurance [facility] Care Teams Metal Weigher Relationship Specialty Start Date End Date Macario Ibrahim MD [address] [address] PCP - General Internal Medicine 10/09/16
--- OUTSIDE RECORDS SUMMARY | 2024-08-26 08:05 | XMS_ITS | Clinical Summary ---
Author Organization [facility] Address [address] [place] [address] Care Team Providers Care Merchandising Professor Name Role Phone Sanaz Pickard MD Unavailable Aracelis Kent NP Primary Care Provider Allergies Active Allergy Reactions Criticality Noted Date Comments Ibuprofen Shortness of breath High 12/11/2016 Nsaids (Non-Steroidal Anti-Inflammatory Drug) Shortness of breath High 12/11/2016 Medications levothyroxine (SYNTHROID) 112 mcg tablet Take 112 mcg by mouth log handling equipment operator before breakfast Active nabumetone (RELAFEN) 750 mg [...] on file Legal Sex Female 10:01 PM HEEL BLACKER Gender Identity Not on file Sexual Orientation [...] (2 of 2) 11/27/2019 10/02/2019 Covid-19 Vaccine (3 - 2023-2 5 season) 2023 05/12/2020, 04/14/2020 Influenza Vaccine (Season Ended) 2024 12/19/2018 DTaP/Tdap/Td Vaccine (2 - Td or Tdap) 10/01/2029 10/02/2019 Pneumococcal vaccine <65 Aged Out No longer eligible based on patient's age to complete this topic Insurance [facility]ICE PL[facility] H[facility]PPO Address: [address] [place] [id number] [place] [address] CHOICE PLUS [facility] H[facility]/PPO Address: [address] [place] [phone] CHOICE PLUS [facility] H[facility]/PPO Address: [address] [address] [place] [address] BLUE ACCESS [facility] Address: [address] [place] [address] BLUE [place] [facility] Address: [address] [place] [address] CHOICE PLUS [facility] HMO/PPO Address: [address] [address] [place] [address] [facility] CHOICE PLUS [facility]/PPO Address: [place] [address] WORKERS COMPENSATION GENERIC COMPENSATION Care Teams Merchandising Professor Relationship Specialty Start Date End Date Aracelis Kent NP [address] [place] [address] PCP - General Nurse Practitioner 05/03/24 [place] [address] [facility] [address] [place] [address] Rheumatology 12/12/16
--- OUTSIDE RECORDS SUMMARY | 2024-08-26 08:05 | XMS_ITS | Encounter Summary ---
Author Organization [facility] Healthcare Address [address] [place] [address] Care Team Providers Care Tableau Report Developer Name Role Phone Patrice Collado MD, Macario Jennings Unavailable + [phone] Patrice Collado MD, Oscar A. Unavailable + [phone] Sanaz Pickard MD Unavailable Patrice Collado MD, Oscar A. Primary Care Provider Miscellaneous, Not In File Primary Care Provider Unavailable Unknown, Notinfile Primary Care Provider Unavail able Aracelis Kent NP Primary Care Provider [phone] Encounter Details Date Type Department Care Team (Late st Contact Info) Description 08/09/2020 Telephone [facility] - Imaging [address] [place] [address] Transcribed Order, Provider Social History [...] on file Legal Sex Female 10:01 PM PASTRY CHEF Gender Identity Not on file Sexual Orientation Not on file Occupation Industry Job Start Date Job End Date EMPLOYED Not on file Not on file Not on file documented as of this encounter Plan of Treatment Not on file documented as of this encounter Visit Diagnoses Not on filedocumented in this encounter Care Teams Tableau Report Developer Relationship Specialty Start Date End Date Macario Ibrahim Jr., MD [address] [place] [address] PCP - General 11/04/19 10/12/20 Miscellaneous, Not In File PCP - General 10/16/20 Unknown, Notinfile PCP - General 04/09/24 05/02/24 Aracelis Kent NP [address] [place] [address] PCP - General Nurse Practitioner 05/03/24 Macario Ibrahim Jr., MD [address] [place] [address] 09/18/16 10/12/20 Macario Ibrahim Jr., MD [address] [place] [address] Geriatric Medicine 10/09/16 10/12/20 [place] [address] [facility] [address] [place] [address] Rheumatology 12/12/16 documented as of this encounter
[2024-08-26 08:15] VITALS: BP 116/71; PULSE 72; RESP 16; TEMP 37.3; O2SAT 100
[2024-08-26] MEDS: LACTATED RINGERS 1,000 ML 150 ML IV CONT (08:30)
--- NOTE | 2024-08-26 08:53 | WPDANESEPP ---
Anes - Eval Pre Procedure Procedure: Operation Date: 08/26/24 09:15 Proposed Procedures p Right Endoscopic Carpal Tunnel Release, Possible Open Carpal Tunnel Release - Jenifer Arriaga MD s Right Cubital Tunnel Release - Jenifer Arriaga MD Date/Time: 08/26/24 08:53 Surgeon: Corina Pre Op Diagnosis: Right Carpal and Cubital Tunnel Syndrome Patient Data Age: 53 Gender: F Height: 1.68 m Weight: 83.45 kg Last Vital Signs Temp 37.3 C 08/26/24 08:15 Pulse 72 08/26/24 08:15 Resp 16 08/26/24 08:15 BP 116/71 08/26/24 08:15 Pulse Ox 100 08/26/24 08:15 O2 Del Method Room Air 08/26/24 08:15 Allergies Allergy/AdvReac Type Severity Reaction Status Date / Time adhesive tape Allergy Unknown Rash Verified 08/26/24 08:13 ibuprofen Allergy Unknown Difficulty Verified 08/26/24 08:13 Breathing pseudoephedrine Allergy Unknown Anaphylactic Verified 08/26/24 08:13 Shock tramadol Allergy Unknown Difficulty Verified 08/26/24 08:13 Breathing triprolidine Allergy Unknown Difficulty Verified 08/26/24 08:13 Breathing Home Medications ?Medication ?Instructions ?Recorded ?Confirmed ?Type levothyroxine 112 mcg tablet See Rx Instructions .Route 12/04/23 08/26/24 Rx .COMPLEX #45 tabs atorvastatin 10 mg tablet (Lipitor) 10 mg PO QHS #90 tabs 04/15/24 08/26/24 Rx amitriptyline 50 mg tablet 50 mg PO QHS 06/28/24 08/26/24 History ergocalciferol (vitamin D2) 1,250 See Rx Instructions .Route 07/22/24 08/26/24 Rx mcg (50,000 unit) capsule .COMPLEX #12 caps meloxicam 7.5 mg tablet 7.5 mg PO DAILY #7 tabs 08/26/24 Rx Patient hx anesthesia problems: none Family hx anesthesia problems: none Results Review: All pre-operative results and documents have been reviewed as part of the pre-operative evaluation. [facility] Past Medical History Medical History Annual physical exam Thyroid disorder Headache, migraine Allergies Chronic maxillary sinusitis Migraine Hypothyroidism, unspecified Mixed hyperlipidemia Obstructive sleep apnea Other fatigue Peripheral polyneuropathy Vertigo Surgical History Surgical History History of placement of ear tubes History of surgery on arm 82-83 delivery delivered 1994 H/O sinus surgery 2018 Family History Family History Grandparent Family history of malignant neoplasm of breast Heart disease Cerebrovascular accident Sibling Family history of sarcoidosis Father Heart disease Mother Alzheimer's dementia Vannesa's disease Grandparent Vannesa's disease Other Diabetes mellitus Family history of coronary artery disease Social History Social History Social History: 07/02/24 patient declined SDOH Smoking status: Never smoker Second hand tobacco smoke exposure: Yes Alcohol intake: current Drinks per week: 1 Alcohol use details: wine Substance use: never Substance use type: does not use Do You Feel Safe in your Home?: Yes Lack of Transportation: No Lack of Food: Never True Current Housing: I Have Housing Concerned About Future Housing: No Difficulty Paying Gas/Electric Bills: No Difficulty Paying for Meds: No Currently Unemployed: No Education: High School Diploma/GED Difficulty w/ Childcare or Family Care: No Living arrangements: alone Occupation/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
[2024-08-26] MEDS: ceFAZolin SODIUM 2 GM/20 ML SW SYRINGE IV PUSH (09:23)
[2024-08-26] MEDS: LIDO 1%/EPINEPHRINE 1:100,000 10 ML VIAL 5 ML INFILTRATE (09:35)
[2024-08-26] MEDS: BUPivacaine HCL 0.5% PF 30 ML VIAL 5 ML INFILTRATE (09:36)
[2024-08-26 09:54] VITALS: BP 112/65; PULSE 72; RESP 14; O2SAT 97
--- NOTE | 2024-08-26 10:14 | WPDANESPN ---
Anes - Prog Note Post-Op Date/Time: 08/26/24 10:14 Cardiovascular status: normal Respiratory status: normal Airway patency: baseline Mental status: baseline Post-Op hydration status: normal Vital Signs: Last Vital Signs Temp 37.3 C 08/26/24 08:15 Pulse 72 08/26/24 09:54 Resp 14 08/26/24 09:54 BP 112/65 08/26/24 09:54 Pulse Ox 97 08/26/24 09:54 O2 Del Method Room Air 08/26/24 09:54 Pain Score (VAS): 0 I/O: Intake & Output 08/25/24 08/26/24 08/26/24 23:59 07:59 15:59 Intake Total 0 Balance 0 Patient Feedback: Patient satisfied with anesthetic care.
[2024-08-26 10:15] VITALS: BP 113/61; PULSE 66; RESP 16; O2SAT 100
[2024-08-26 10:35] VITALS: BP 118/70; PULSE 62; RESP 16; O2SAT 100
== END 2024-08-26 11:00 | disposition home or self-care (01) ==
PROVIDERS: PCP Nurse Practitioner Family; Visit Provider Plastic Surgery
PROC: 01N54ZZ Release Median Nerve, Percutaneous Endoscopic Approach (ICD-10-PCS; CPT 29848; principal; 2024-08-26 09:15)
PROC: (CPT 64718; 2024-08-26 09:15)
DX: G56.01 Carpal tunnel syndrome, right upper limb (principal); G56.21 Lesion of ulnar nerve, right upper limb
CPT/HCPCS: 29848; 64718

== ENCOUNTER 2024-10-20 14:01 | Outpatient (CLI) | payer OTHER, SELFPAY ==
--- NOTE | ~2024-10-20 | XR_ITS ---
EXAMINATION: XR fl inj shoulder RT - MR/CT DATE: 10/20/2024 15:19 INDICATION: Right shoulder injury TECHNIQUE: A time-out was performed to verify the patient's name, date of , and procedure to b e performed. The procedure including the risks, benefits, and alternatives was discussed with the pat ient. Risks discussed included bleeding and infection. The patient understood the risks and agreed to proceed. The skin overlying the rotator cuff interval the right glenohumeral joint was prepped and draped in usual sterile fashion. Anesthetic was administered with 1% lidocaine subcutaneously. A 22 G needle was advanced under fluoroscopic guidance into the joint. Injection of 1 mL of Omnipaque 24 0 confirmed intra-articular position of the needle. Subsequently, injectate consisting of . 12 mL of 2:1:1 mixture of sterile saline:Omnipaque 240:1% lidocaine mixed 200:1 with 529 mg/mL Multihance nba olinium contrast was instilled with intra-articular administration confirmed with intermittent fluor oscopy. The needle was removed and the entry site was cleaned and dressed. There were no immediate c omplications. Fluoroscopy exposure time was 0.2 minutes. The total number of images was 144. Total DA P was 0.668 Gycm^2 FINDINGS: Real-time fluoroscopy demonstrates the needle and contrast in the right glenohumeral joint. IMPRESSION: 1. Successful right glenohumeral joint injection of dilute gadolinium contrast mixture for subsequent MRI arthrogram which will be dictated separately. Reviewed, dictated and finalized at location A.
--- NOTE | ~2024-10-20 | MR_ITS ---
EXAMINATION: MR shoulder RT w con DATE: 10/20/2024 16:00 INDICATION: Right shoulder injury presenting with right shoulder pain TECHNIQUE: Magnetic resonance imaging (MRI) of the right shoulder was performed following intra-michaelle cular gadolinium contrast injection and without intravenous contrast. Details of the glenohumeral kena nt injection have been dictated separately. Sequences included axial T2-weighted FS FSE, axial T1-we ighted FS FSE, coronal oblique T1-weighted FS FSE, coronal oblique T2-weighted FSE, sagittal T2-weigh ileana FS FSE, sagittal T1-weighted FSE, and ABER (abduction external rotation) T1-weighted FS FSE. COMPARISON: None. FINDINGS: Coracoacromial arch: The acromion undersurface is curved in morphology (type II). The coracoacromial ligament is normal. M ild to moderate acromioclavicular osteoarthritis. Rotator cuff: Mild supraspinatus tendinopathy without tear. The infraspinatus and teres minor are normal. The subsc apularis is normal. Normal rotator cuff muscle bulk and signal. Biceps tendon, glenoid labrum and glenohumeral cartilage: Long head of the biceps tendon is normal. Glenoid labrum is normal. Glenohumeral cartilage is normal. Bones and other: There is an old healed fracture at the proximal metadiaphyseal region of the right humerus which is h ealed with approximately 10 degrees anterior angulation. There is a homogeneous 2.1 x 2.0 x 1.8 cm ho mogeneously T2 hyperintense lesion of fluid signal intensity, likely an intraosseous ganglion cyst wh ich underlies the caudal aspect of the lesser tuberosity and portions of the intertubercular groove. Otherwise normal marrow signal with no acute fracture or abnormal marrow replacing process. Mild inc reased fluid signal in the subacromial/subdeltoid bursa consistent with mild bursitis. IMPRESSION: 1. Old healed fracture deformity at the proximal right humeral metadiaphysis which has healed with 10 degrees anterior angulation. No acute osseous abnormality. 2. 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 3. Mild supraspinatus tendinopathy without discrete tear. 4. 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 Reviewed, dictated and finalized at location A. IMPRESSION: 1. Old healed fracture deformity at the proximal right humeral metadiaphysis wh ich has healed with 10 degrees anterior angulation. No acute osseous abnormalit y. 2. Mild to moderate right acromioclavicular osteoarthritis with mild underlying subacromial/subdeltoid bursitis. 3. Mild supraspinatus tendinopathy without discrete tear. 4. 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
--- NOTE | ~2024-10-20 | MR_ITS ---
EXAMINATION: MR cervical spine wo con DATE: 10/20/2024 16:05 INDICATION: Radiculopathy TECHNIQUE: Magnetic resonance imaging (MRI) of the cervical spine was performed without intravenous c ontrast. Sequences included sagittal T2-weighted FSE, sagittal T2-weighted FS FSE, sagittal T1-weight ed FSE, axial MERGE and axial T2-weighted FSE. COMPARISON: None FINDINGS: Bone alignment is normal. Vertebral body heights are normal. Bone marrow signal intensity is normal . Mild disc height loss with annular fissure at C5-C6. Possible annular fissure at C6-C7 which will b e further discussed below. Cord signal intensity is normal. Visualized cervical soft tissues are unre markable. The following disc levels are specifically discussed: C2-C3: The disc does not extend beyond the endplate margin. There is no uncovertebral joint osteoarth ritis. There is moderate bilateral facet joint osteoarthritis. There is no neural foraminal stenosis. There is no central canal stenosis. C3-C4: Disc is mildly bulging. There is moderate left and mild right uncovertebral joint osteoarthrit is. There is moderate left and mild right facet joint osteoarthritis. There is mild bilateral, left g reater than right neural foraminal stenosis. There is mild central canal stenosis. C4-C5: Disc is minimally bulging. There is mild bilateral uncovertebral joint osteoarthritis. There i s severe left and mild right facet joint osteoarthritis. There is mild left neural foraminal stenosis . There is minimal central canal stenosis. C5-C6: Disc is bulging, eccentric to the right indents the right ventral surface of the cord. There i s moderate left and severe right uncovertebral joint osteoarthritis. There is mild bilateral facet radha int osteoarthritis. There is mild left and moderate right neural foraminal stenosis. There is mild ce ntral canal stenosis. C6-C7: Small right paracentral disc protrusion. On the non fat saturated sagittal images there is sug gestion of an annular fissure and right paracentral disc extrusion with disc material extending up to 3 mm cephalad to level of the inferior endplate of C6. There is mild bilateral uncovertebral joint o steoarthritis. There is mild bilateral facet joint osteoarthritis. There is mild bilateral neural for aminal stenosis. There is mild central canal stenosis. C7-T1: The disc does not extend beyond the endplate margin. There is no uncovertebral joint osteoarth ritis. There is mild bilateral facet joint osteoarthritis. There is no neural foraminal stenosis. The re is no central canal stenosis. IMPRESSION: 1. Mild cervical spondylosis. Reviewed, dictated and finalized at location A.
--- OUTSIDE RECORDS SUMMARY | 2024-10-20 14:17 | XMS_ITS | Clinical Summary ---
Author Organization [facility] Address [address] [place] [address] Care Team Providers Care Amphibious Operations Officer Name Role Phone Sanaz Pickard MD Unavailable Aracelis Kent NP Primary Care Provider Allergies Active Allergy Reactions Criticality Noted Date Comments Ibuprofen Shortness of breath High 12/11/2016 Nsaids (Non-Steroidal Anti-Inflammatory Drug) Shortness of breath High 12/11/2016 Medications levothyroxine (SYNTHROID) 112 mcg tablet Take 112 mcg by mouth assembler clip on sunglasses before breakfast Active nabumetone (RELAFEN) 750 mg [...] on file Legal Sex Female 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 Address: [address] [place] [address] BLUE [place] CHOICE PLUS [facility] CHOICE PLUS WORKERS COMPENSATION GENERIC COMPENSATION Care Teams Amphibious Operations Officer Relationship Specialty Start Date End Date Aracelis Kent NP [address] [place] [address] PCP - General Nurse Practitioner 05/03/24 [place] [address] [facility] [address] [place] [address] Rheumatology 12/12/16
--- OUTSIDE RECORDS SUMMARY | 2024-10-20 14:17 | XMS_ITS | Clinical Summary ---
Author Organization [facility] Address [facility] [place] [address] Care Team Providers Care Weed Sprayer Name Role Phone Aracelis Kent [employer] Primary Care Provider [phone] Allergies Active Allergy Reactions Criticality Noted Date [...] 4:41 PM CDT Height 172.7 cm (5' 8) 08/15/2023 4:41 PM CDT Body Mass Index [...] patient's age to complete this topic Insurance [facility] [place] [facility] Care Teams Weed Sprayer Relationship Specialty Start Date End Date Aracelis Kent FNP [address] [place] [address] PCP - General Nurse Practitioner Family 11/12/23
--- OUTSIDE RECORDS SUMMARY | 2024-10-20 14:17 | XMS_ITS | Encounter Summary ---
Author Organization [facility] Address [facility] [place] [address] Care Team Providers Care Manager Of Housekeeping Name Role Phone Macario Ibrahim MD Primary Care Provider Unava Robyn Strange DO Primary Care Provider [phone] Aracelis Kent Primary Care Provider [phone] Encounter Details Date Type Department Care Team (Late st Contact Info) Description 11/22/2016 Abstract [facility] CONVERSION [address] [place] [address] , Michaelle Zamudio MD Social History Tobacco [...] on filedocumented in this encounter Care Teams Manager Of Housekeeping Relationship Specialty Start Date End Date Macario Ibrahim MD PCP - General INTERNAL MEDICINE 12/02/18 11/02/20 Robyn Rucker DO PCP - General FAMILY PRACTICE 11/03/20 11/11/23 Aracelis Kent FNP [address] [place] [address] PCP - General Nurse Practitioner Family 11/12/23 documented as of this encounter
--- OUTSIDE RECORDS SUMMARY | 2024-10-20 14:17 | XMS_ITS | Clinical Summary ---
Author Organization [facility] Address [address] [place] [address] Care Team Providers Care Affirmative Action Officer Name Role Phone Macario Ibrahim MD Primary Care Provider [phone] Source Comments [facility],non-owned Affiliates and Associated Physician Practices is amultiple site organization consisting of ambulatory clinics and hospital sitesin [place], [place], [place] and [place]. This disclosure is being madepursuant to the Care Everywhere program and may not contain all information available regarding this patient. Last updated 17.[facility] [employer] Social History Tobacco Use Types Packs/Day Years [...] season) 2023 DEPRESSION SCREENING 03/10/2024 INFLUENZA VACCINE (#1) 2024 HIB VACCINE Aged Out No longer [...] patient's age to complete this topic Insurance [facility] Care Teams Affirmative Action Officer Relationship Specialty Start Date End Date Macario Ibrahim MD [address] [address] PCP - General Internal Medicine 10/09/16
--- OUTSIDE RECORDS SUMMARY | 2024-10-20 14:17 | XMS_ITS | Encounter Summary ---
Author Organization [facility] Healthcare Address [address] [place] [address] Care Team Providers Care Clinical Unit Educator Name Role Phone Patrice Collado MD, Macario Jennings Unavailable + [phone] Patrice Collado MD, Oscar A. Unavailable + [phone] Sanaz Pickard MD Unavailable Patrice Collado MD, Oscar A. Primary Care Provider Miscellaneous, Not In File Primary Care Provider Unavailable Unknown, Notinfile Primary Care Provider Unavail able Aracelis Kent NP Primary Care Provider [phone] Encounter Details Date Type Department Care Team (Late st Contact Info) Description 08/09/2020 Telephone [facility] - Imaging [address] [place] [address] Transcribed Order, Provider Social History [...] on file Legal Sex Female 10:01 PM DEVIL DOG Gender Identity Not on file Sexual Orientation Not on file Occupation Industry Job Start Date Job End Date EMPLOYED Not on file Not on file Not on file documented as of this encounter Plan of Treatment Not on file documented as of this encounter Visit Diagnoses Not on filedocumented in this encounter Care Teams Clinical Unit Educator Relationship Specialty Start Date End Date Macario Ibrahim Jr., MD [address] [place] [address] PCP - General 11/04/19 10/12/20 Miscellaneous, Not In File PCP - General 10/16/20 Unknown, Notinfile PCP - General 04/09/24 05/02/24 Aracelis Kent NP [address] [place] [address] PCP - General Nurse Practitioner 05/03/24 Macario Ibrahim Jr., MD [address] [place] [address] 09/18/16 10/12/20 Macario Ibrahim Jr., MD [address] [place] [address] Geriatric Medicine 10/09/16 10/12/20 [place] [address] [facility] [address] [place] [address] Rheumatology 12/12/16 documented as of this encounter
== END 2024-10-20 14:02 | disposition home or self-care (01) ==
LOC: ANHIMG 14:15
PROVIDERS: PCP Nurse Practitioner Family; Visit Provider Orthopaedic Surgery
DX: M21.921 Unspecified acquired deformity of right upper arm (principal); M19.011 Primary osteoarthritis, right shoulder; M75.51 Bursitis of right shoulder; M75.81 Other shoulder lesions, right shoulder
CPT/HCPCS: 23350; 72141; 73222; 77002; A9577; J2003; Q9966

== ENCOUNTER 2024-11-16 12:56 | Outpatient (CLI) | payer OTHER, SELFPAY ==
--- NOTE | 2024-11-16 13:20 | NEURO_ITS ---
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 # No Carpal Tunnel Syndrome or Ulnar Neuropathy. # Normal Needle/ EMG exam. # Clinical correlation recommended. Nerve Conduction Studies ?Stim Site NR Peak (ms) P-T Amp (?V) Site1 Site2 Delta-P (ms) Dist (cm) Antione (m/s) Left Median Anti Sensory (2-3nd Digit) Wrist ? 3.1 37.9 Wrist 2-3nd Digit 3.1 14.0 45 Wrist ? 3.3 36.1 Wrist 2-3nd Digit 3.1 14.0 45 Left Radial Anti Sensory (Base 1st Digit) Wrist ? 1.7 19.4 Wrist Base 1st Digit 1.7 0.0 Left Ulnar Anti Sensory (5th Digit) Wrist ? 2.2 29.3 Wrist 5th Digit 2.2 14.0 64 ?Stim Site NR Onset (ms) O-P Amp (mV) Site1 Site2 Delta-0 (ms) Dist (cm) Antione (m/s) Left Median Motor (Abd Poll Brev) Wrist ? 3.0 4.0 Elbow Wrist 4.9 30.0 61 Elbow ? 7.9 4.4 Left Ulnar Motor (Abd Dig Minimi) Wrist ? 2.4 6.0 A Elbow Wrist 4.8 29.0 60 A Elbow ? 7.2 4.3 B Elbow Wrist 3.5 21.0 60 B Elbow ? 5.9 3.2 F Wave Studies ?NR F-Lat (ms) L-R F-Lat (ms) Left Median (Mrkrs) (Abd Poll Brev) ? 27.19 Left Ulnar (Mrkrs) (Abd Dig Min) ? 26.26 Electromyography ?Side Muscle Nerve Root Ins Act Fibs Amp Dur Recrt Comment Left 1stDorInt Ulnar C8-T1 Nml Nml Nml Nml Nml Left Ext Indicis Radial (Post Int) C7-8 Nml Nml Nml Nml Nml Left Ext Digitorum Radial (Post Int) C7-8 Nml Nml Nml Nml Nml Left BrachioRad Radial C5-6 Nml Nml Nml Nml Nml Left PronatorTeres Median C6-7 Nml Nml Nml Nml Nml Left Abd Poll Brev Median C8-T1 Nml Nml Nml Nml Nml Left ABD Dig Min Ulnar C8-T1 Nml Nml Nml Nml Nml Left FlexPolLong Median (Ant Int) C7-8 Nml Nml Nml Nml Nml Left Abd Poll Long Radial (Post Int) C7-8 Nml Nml Nml Nml Nml
--- OUTSIDE RECORDS SUMMARY | 2024-11-16 14:16 | XMS_ITS | Encounter Summary ---
Author Organization [facility] Address [facility] [place] [address] Care Team Providers Care Construction Carpenter Name Role Phone Macario Ibrahim MD Primary Care Provider Unava Robyn Strange DO Primary Care Provider [phone] Aracelis Kent Primary Care Provider [phone] Encounter Details Date Type Department Care Team (Late st Contact Info) Description 11/22/2016 Abstract [facility] CONVERSION [address] [place] [address] , Michaelle Zamudio MD Social History Tobacco [...] on filedocumented in this encounter Care Teams Construction Carpenter Relationship Specialty Start Date End Date Macario Ibrahim MD PCP - General INTERNAL MEDICINE 12/02/18 11/02/20 Robyn Rucker DO PCP - General FAMILY PRACTICE 11/03/20 11/11/23 Aracelis Kent FNP [address] [place] [address] PCP - General Nurse Practitioner Family 11/12/23 documented as of this encounter
--- OUTSIDE RECORDS SUMMARY | 2024-11-16 14:16 | XMS_ITS | Encounter Summary ---
Author Organization [facility] Healthcare Address [address] [place] [address] Care Team Providers Care Wet Pan Mixer Name Role Phone Patrice Collado MD, Macario Jennings Unavailable + [phone] Patrice Collado MD, Oscar A. Unavailable + [phone] Sanaz Pickard MD Unavailable Patrice Collado MD, Oscar A. 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 Gender Identity Not on file Sexual Orientation Not on file Occupation Industry Job Start Date Job End Date EMPLOYED Not on file Not on file Not on file documented as of this encounter Plan of Treatment Not on file documented as of this encounter Visit Diagnoses Not on filedocumented in this encounter Care Teams Wet Pan Mixer Relationship Specialty Start Date End Date Macario Ibrahim Jr., MD [address] [place] [address] PCP - General 11/04/19 10/12/20 Miscellaneous, Not In File PCP - General 10/16/20 Unknown, Notinfile PCP - General 04/09/24 05/02/24 Aracelis Kent NP [address] [place] [id number] PCP - General Nurse Practitioner 05/03/24 Macario Ibrahim Jr., MD [address] [place] [address] 09/18/16 10/12/20 Macario Ibrahim Jr., MD [address] [place] [address] Geriatric Medicine 10/09/16 10/12/20 [place] [address] [facility] [address] [place] [address] Rheumatology 12/12/16 documented as of this encounter
--- OUTSIDE RECORDS SUMMARY | 2024-11-16 14:16 | XMS_ITS | Clinical Summary ---
Author Organization [facility] Address [address] [place] [address] Care Team Providers Care Mortgage Branch Manager Name Role Phone Sanaz Pickard MD Unavailable Aracelis Kent NP Primary Care Provider Allergies Active Allergy Reactions Criticality Noted Date Comments Ibuprofen Shortness of breath High 12/11/2016 Nsaids (Non-Steroidal Anti-Inflammatory Drug) Shortness of breath High 12/11/2016 Medications levothyroxine (SYNTHROID) 112 mcg tablet Take 112 mcg by mouth nursing surgical services director before breakfast Active nabumetone (RELAFEN) 750 mg [...] on file Legal Sex Female 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 Gender Identity Not on file Sexual Orientation [...] 2) 11/27/2019 10/02/2019 Covid-19 Vaccine (3 - 2024-2 6 season) 2024 05/12/2020, 04/14/2020 Influenza Vaccine (#1) 2024 12/19/2018 DTaP/Tdap/Td Vaccine (2 - Td or Tdap) 10/01/2029 10/02/2019 Pneumococcal vaccine <65 Aged Out No longer eligible based on patient's age to complete this topic Insurance * Guarantor: Cherrie Bartlett Account Type Relation to Patient Date of Phone Billing Address Personal/Family Self [address] [place] [phone] [facility] [place] [address] [place] [address] CHOICE PLUS CHOICE [place] * Guarantor: Cherrie Bartlett Account Type Relation to Patient Date of Phone Billing Address Personal/Family Self [address] [place] [phone] [facility] CHOICE PLUS * Guarantor: Cherrie Bartlett Account Type Relation to Patient Date of Phone Billing Address Workers Comp Self [address] [place] [phone] WORKERS COMPENSATION GENERIC COMPENSATION Care Teams Mortgage Branch Manager Relationship Specialty Start Date End Date Aracelis Kent NP [address] [place] [id number] PCP - General Nurse Practitioner 05/03/24 [place] [address] [facility] [address] [place] [address] Rheumatology 12/12/16
--- OUTSIDE RECORDS SUMMARY | 2024-11-16 14:16 | XMS_ITS | Clinical Summary ---
Author Organization [facility] Address [address] [place] [address] Care Team Providers Care Vegetable Washer Name Role Phone Macario Ibrahim MD Primary Care Provider [phone] Source Comments [facility],non-owned Affiliates and Associated Physician Practices is amultiple site organization consisting of ambulatory clinics and hospital sitesin [place], [place], [place] and [place]. This disclosure is being madepursuant to the Care Everywhere program and may not contain all information available regarding this patient. Last updated 17.[facility] [employer] Social History Tobacco Use Types Packs/Day Years [...] 08/31/2019 ZOSTER VACCINE (1 of 2) 08/31/2019 DEPRESSION SCREENING 03/10/2024 COVID-19 VACCINE (1 - 2023-2 5 season) 2024 INFLUENZA VACCINE (#1) 2024 HIB VACCINE Aged [...] patient's age to complete this topic Insurance [facility] Care Teams Vegetable Washer Relationship Specialty Start Date End Date Macario Ibrahim MD [address] [place] [address] PCP - General Internal Medicine 10/09/16
--- OUTSIDE RECORDS SUMMARY | 2024-11-16 14:16 | XMS_ITS | Clinical Summary ---
Author Organization [facility] Address Formerly [facility], [id number] [place] [address] Care Team Providers Care Sheet Rock Hanger Name Role Phone Aracelis Kent MEDIA RELATIONS SPECIALIST Primary Care Provider [phone] Allergies Active Allergy Reactions Criticality Noted Date [...] 2) 11/27/2019 10/02/2019 COVID-19 Vaccine (3 - 2024-2 6 season) 2024 05/12/2020, 04/14/2020 DTaP, Tdap and Td Vaccines [...] patient's age to complete this topic Insurance [facility] Care Teams Sheet Rock Hanger Relationship Specialty Start Date End Date Aracelis Kent FNP [address] [place] [id number] PCP - General Nurse Practitioner Family 11/12/23
== END 2024-11-16 12:57 | disposition home or self-care (01) ==
PROVIDERS: PCP Nurse Practitioner Family; Visit Provider Nurse Practitioner Family
DX: G56.22 Lesion of ulnar nerve, left upper limb (principal)
CPT/HCPCS: 95886; 95909

== ENCOUNTER 2025-02-04 08:53 | Outpatient (CLI) | payer OTHER, SELFPAY ==
--- NOTE | ~2025-02-04 | MM_ITS ---
EXAMINATION: MM screening pablito BI w ganesh HISTORY: Screening. TECHNIQUE: Craniocaudal and mediolateral oblique 3-D tomosynthesis images were obtained and synthetic 2-D images were generated. CAD analysis was submitted and interpreted. COMPARISON: 2023, 2022, and 2020 BREAST PARENCHYMAL COMPOSITION: Not Dense: There are scattered areas of fibroglandular tissue. FINDINGS: No suspicious masses are seen. There are no suspicious calcifications. No unexplained architectural distortion is seen. There are no skin or nipple abnormalities identified. There is no adenopathy seen on the images submitted. IMPRESSION: No mammographic evidence to suggest malignancy is seen. The patient may return to screening mammography as per ACR guidelines. BI-RADS: 1 - Negative. Reviewed, dictated and finalized at location A. RIAL ATTENDANT
== END 2025-02-04 08:54 | disposition home or self-care (01) ==
LOC: MICIMG 08:54
PROVIDERS: PCP Nurse Practitioner; Visit Provider Nurse Practitioner
DX: Z12.31 Encounter for screening mammogram for malignant neoplasm of breast (principal)
CPT/HCPCS: 77063; 77067